=== PATIENT | female | born 1950 ===

== ENCOUNTER 2021-02-25 13:01 | Outpatient (REF) | payer MEDICARE, SELFPAY ==
--- NOTE | 2021-03-02 13:31 | MHC.AU.ANO ---
Adult Audiological Evaluation Date of Visit: 02/25/21 Reason for Appointment: Patient has begun to notice mild hearing difficulty. She finds herself asking for repetition more often. She experiences occasional tinnitus and has a recent diagonsis of BPPV. Has hearing been tested previously?: No Hearing Handicap Inventory: HHIE SCORE: 12 Based on HHIE score, patient has: Mild to moderate perceived hearing handicap Ear History: Ear Deformity: None Reported Recent Ear Drainage: None Reported Recent Ear Pain: None Reported Family History of Hearing Loss?: Yes: Grandparents, Niece Recent Ear Infections: None Reported Ear Infections in Childhood: None Reported History of Ear Wax Buildup: None Reported Previous Ear Surgery: None Reported Bothersome Tinnitus/Ringing/Noises in Ears: Occasional Ear used on the phone: Left Ear Blocked/Full Sensation in Ear(s): None Reported History of occupational noise exposure?: No History: No Medical History: Medical History: BPPV, Fibromyalgia Otoscopy: Right Ear: Unremarkable Left Ear: Unremarkable Tympanometry: Tympanometry performed due to: To assess integrity of the middle ear system Right Ear: Normal Middle Ear System (Type A) Left Ear: Normal Middle Ear System (Type A) Hearing Evaluation: Transducer(s) Used: Circumaural Headphones Method: Conventional Audiometry Stimuli Used: Pure Tones Right Ear: Description of Hearing: Normal gradually sloping to moderate sensorineural hearing loss Left Ear: Description of Hearing: Normal gradually sloping to mild sensorineural hearing loss Speech Recognition Threshold (SRT): Method Used: Recorded Lists Stimuli Used: Spondee Words Right Ear: 30 dBHL Left Ear: 25 dBHL Word Discrimination: Method: Recorded Lists Word Lists Used: NU-6 Right Ear: 96% at 60 dBHL Left Ear: 96% at 60 dBHL Most Comfortable Level (MCL): Right Ear: 60 dBHL Left Ear: 60 dBHL Recommendations: Audiological re-evaluation in one year. Amplification is not warranted at this time. To help optimize listening conditions: -Minimize background noise when possible. -Speak to the patient in a clear voice, from a close distance, and [id number]. -Gain the patient's full attention before talking. Diagnosis: Primary Diagnosis: H90.3 Bilateral Sensorineural Hearing Loss Services Performed: Comprehensive Audiological Evaluation (CPT 53715), Tympanometry (CPT 99968) Signature: Provider: Sarath Zelaya, [facility]
== END 2021-02-25 13:02 | disposition home or self-care (01) ==
LOC: HO.SH 13:01
PROVIDERS: Visit Provider Physician Assistant
DX: H90.3 Sensorineural hearing loss, bilateral (principal)
CPT/HCPCS: 92557; 92567

== ENCOUNTER → 2021-08-12 09:47 | Outpatient (BNVA) | payer MEDICARE, SELFPAY | PROVIDERS: PCP Internal Medicine Geriatric Medicine; Referring Provider Internal Medicine Geriatric Medicine; Visit Provider Surgery | DX: K43.2 Incisional hernia without obstruction or gangrene (principal) | CPT/HCPCS: 99202 ==

== ENCOUNTER 2021-09-13 09:32 | Outpatient (REF) | payer MEDICARE, SELFPAY ==
[2021-09-13 10:29] LABS: Blood Urea Nitrogen 13 mg/dL (9-16); Estimated Glomerular Filt Rate > 60
== END 2021-09-13 09:33 | disposition home or self-care (01) ==
LOC: HO.LAB 09:32
PROVIDERS: Visit Provider Surgery
DX: K43.2 Incisional hernia without obstruction or gangrene (principal)
CPT/HCPCS: 36415; 82565; 84520

== ENCOUNTER 2021-09-16 09:48 | Outpatient (REF) | payer MEDICARE, SELFPAY ==
--- NOTE | ~2021-09-16 | CT_ITS ---
EXAMINATION: CT ABDOMEN AND PELVIS WITHOUT CONTRAST CLINICAL INFORMATION: Incisional hernia without obstruction or gangrene COMPARISON: 744 TECHNIQUE: Multidetector volumetric imaging was performed from the superior aspect of the liver through the pubic symphysis. Sagittal and coronal reformatted images were obtained on the technologist's workstation. This CT examination was performed using dose optimization techniques as appropriate, variously including the following: *Automated exposure control *Adjustment of mA and/or kV according to patient size (this includes techniques or standardized protocols for targeted exams where dose is matched to indication/reason for exam; i.e. extremities or head) *Use of iterative reconstruction technique DLP: 744 mGy-cm FINDINGS: LUNG BASES: Bibasilar atelectasis. The heart is not enlarged. No pericardial effusion. No large pleural effusion. LIVER, GALLBLADDER, AND BILIARY TREE: The liver is normal in size, shape, and attenuation. No focal hepatic lesion or biliary ductal dilatation is present. The gallbladder is surgically absent. PANCREAS: Unremarkable. SPLEEN: Unremarkable. ADRENAL GLANDS: Unremarkable. KIDNEYS AND URETERS: Bilateral nonobstructive 1 mm calculi without hydronephrosis. No perinephric stranding. Calcification along the left mid ureter likely vascular in etiology. BLADDER: Inferior margin of the urinary bladder is low lying. GASTROINTESTINAL TRACT: Colonic diverticulosis without acute diverticulitis. The small and large bowel are unremarkable. The appendix is unremarkable. ABDOMINAL WALL: Tiny fat filled ventral hernia measuring approximately 3 mm at its opening. LYMPH NODES: No enlarged lymph nodes per size criteria. VASCULAR: Abdominal aorta is nonaneurysmal. Atherosclerotic calcifications of the abdominal aorta and its branches. Pelvic phleboliths PELVIC VISCERA: Atrophy versus surgically absent. Multilevel degenerative changes of the thoracolumbar and lumbosacral spine. Osteopenia. No large lytic or blastic lesions are noted. OSSEOUS STRUCTURES: Unremarkable. CT/CT abdomen pelvis wo con IMPRESSION: 1. Tiny fat filled ventral hernia measuring approximately 3 mm at its opening. 2. Status post cholecystectomy. 3. Bilateral nephrolithiasis measuring up to 1 mm without hydronephrosis. 4. Colonic diverticulosis without diverticulitis. 5. Osteopenia.
== END 2021-09-16 09:49 | disposition home or self-care (01) ==
LOC: HO.CT 09:48
PROVIDERS: Visit Provider Surgery
DX: K43.2 Incisional hernia without obstruction or gangrene (principal)
CPT/HCPCS: 74176

== ENCOUNTER → 2021-09-20 08:53 | Outpatient (BNVA) | payer MEDICARE, SELFPAY | PROVIDERS: PCP Internal Medicine Geriatric Medicine; Referring Provider Internal Medicine Geriatric Medicine; Visit Provider Surgery | DX: K43.2 Incisional hernia without obstruction or gangrene (principal) | CPT/HCPCS: 99212 ==

== ENCOUNTER 2022-06-19 07:15 | Day surgery (SDC) | payer OTHER, SELFPAY ==
[2022-06-12 15:27] VITALS: BMI 30.4
--- NOTE | 2022-06-15 13:31 | MHC.SHP ---
Pre-Procedural Eval Section A Date of Service: 06/15/22 The patient is an INPATIENT: No Changes since office visit: No Cold of Flu in the past 2 weeks, No New Medical Problems, No Changes in Medication and No Patient answered all questions The History & Physical has been completed within 30 days and I have reviewed it.: Yes Section B Chief Complaint: cataract Allergies: Allergies Allergy/AdvReac Type Severity Reaction Status Date / Time iodine Allergy Severe Anaphylaxis Verified 06/12/22 15:24 morphine [MORPHINE] Allergy Severe HALLUCINATI Verified 06/12/22 15:24 ONS oxycodone [OXYCODONE] Allergy Severe HALLUCINATI Verified 06/12/22 15:24 ONS IV dye Allergy Severe Anaphylaxis Uncoded 06/12/22 15:24 Flexeril Allergy Intermediate Gastrointestinal Uncoded 06/12/22 15:24 Upset Plan Diagnosis/Plan: Unchanged I have reviewed the history and physical and performed a pertinent physical examination on my patient. No changes have occurred unless specified.
--- NOTE | 2022-06-16 09:27 | HO.ANESPROP2 ---
Documented by User: Sivan Cloud NP 06/16/22 09:29 HPI - Anesthesia Eval Consult details Narrative: 72yo F for Left Cataract Extraction IOL Insertion PCP cleared No previous cataract on record [facility] Active Problems Active Problems: All Active Problems (Updated 06/12/22 @ 15:26 by Adriana Washington RN) Incisional hernia (Acute) Past Medical History Medical History Bilateral low back pain with bilateral sciatica Lumbar disc herniation Family History Family History Mother Cutaneous lymphoma Surgical History Surgical History History of abdominoplasty History of bilateral breast reduction surgery History of cholecystectomy Hx of colonoscopy Social History Social History Household Members Other:: 7 yr old grandson Are you a primary workforce investment act career manager to a significant other at home: Yes (grandson, patient's sister to assist post-op) Do you presently have visiting nurse or other home services: No Alcohol intake: never Patient Tobacco Use Status: Former Tobacco user Quit Date: years ago Tobacco use type: Cigarette Use of substances other than those prescribed or required for medical reasons: No Have you been hit, kicked, punched, or otherwise hurt by someone within the past year? If so, by whom?: No Are you DNR?: No Advance Directives: No Advance Directives Information Provided: Yes Advance Directives on File: No Recently lost weight without trying: No Nutrition Risks: No Nutritional Risk Meds Allergies Allergy/AdvReac Type Severity Reaction Status Date / Time iodine Allergy Severe Anaphylaxis Verified 06/12/22 15:24 morphine [MORPHINE] Allergy Severe HALLUCINATI Verified 06/12/22 15:24 ONS oxycodone [OXYCODONE] Allergy Severe HALLUCINATI Verified 06/12/22 15:24 ONS IV dye Allergy Severe Anaphylaxis Uncoded 06/12/22 15:24 Flexeril Allergy Intermediate Gastrointestinal Uncoded 06/12/22 15:24 Upset Home Medications Medication Instructions Recorded Confirmed Last Taken Type fluticasone propionate 50 1 - 2 spray intranasal DAILY 09/20/21 09/20/21 Unknown History mcg/actuation nasal spray,suspension meclizine 25 mg tablet 25 mg PO TID PRN 09/20/21 09/20/21 Unknown History Exam Exam Date and Time: June 16, [id number] Height,Weight and Vital Signs: Height 5 ft 3 in Weight 78.018 kg Assessment and Plan Assessment Anesthesia Assessment: Chart Reviewed Documented by User: Roberto Christine MD 06/19/22 08:20 PMF Past Medical History Medical History Bilateral low back pain with bilateral sciatica Lumbar disc herniation Family History Family History Mother Cutaneous lymphoma Family history of problems with anesthesia: No Surgical History Surgical History History of abdominoplasty History of bilateral breast reduction surgery History of cholecystectomy Hx of colonoscopy History of Problems with Anesthesia: No Social History Social History Household Members Other:: 7 yr old grandson Are you a primary workforce investment act career manager to a significant other at home: Yes (grandson, patient's sister to assist post-op) Do you presently have visiting nurse or other home services: No Alcohol intake: never Patient Tobacco Use Status: Former Tobacco user Quit Date: years ago Tobacco use type: Cigarette Use of substances other than those prescribed or required for medical reasons: No Have you been hit, kicked, punched, or otherwise hurt by someone within the past year? If so, by whom?: No Are you DNR?: No Advance Directives: No Advance Directives Information Provided: Yes Advance Directives on File: No Recently lost weight without trying: No Nutrition Risks: No Nutritional Risk Meds Allergies Allergy/AdvReac Type Severity Reaction Status Date / Time iodine Allergy Severe Anaphylaxis Verified 06/12/22 15:24 morphine [MORPHINE] Allergy Severe HALLUCINATI Verified 06/12/22 15:24 ONS oxycodone [OXYCODONE] Allergy Severe HALLUCINATI Verified 06/12/22 15:24 ONS IV dye Allergy Severe Anaphylaxis Uncoded 06/12/22 15:24 Flexeril Allergy Intermediate Gastrointestinal Uncoded 06/12/22 15:24 Upset Home Medications Medication Instructions Recorded Confirmed Last Taken Type fluticasone propionate 50 1 - 2 spray intranasal DAILY 09/20/21 09/20/21 Unknown History mcg/actuation nasal spray,suspension meclizine 25 mg tablet 25 mg PO TID PRN 09/20/21 09/20/21 Unknown History Exam Airway Mallampati Class: II TM Dist: >3cm Neck ROM: Full Loose/Missing/Broken Teeth: Yes (many crowns globally) Heart: [id number] Lungs: cta b/l Assessment and Plan Assessment Anesthesia Assessment: Anesthesia Plan Discussed Final Anesthetic Review Family History of Problems with Anesthesia: No History of Problems with Anesthesia: No NPO: Yes ASA Class: II Final Preanesthetic Review: No Changes in Pt Med Stat, Meds/Allgs Chart Reviewed, Consent Obtained/Reviewed and Anes Risks/Benef Reviewed Patient Risk: Low Procedure Risk: Low Assessment/Block/Sedation in SS: Assess/Block/Sedation-SS Anesthetic Plan Anesthetic Plan: MAC: and Agree w/ Assess. and Plan Disposition: Standard PACU
[2022-06-19 08:09] VITALS: BP 179/79; PULSE 80; RESP 16; TEMP 36.7; O2SAT 96
[2022-06-19] MEDS: Tetracaine HCl/PF 0.5% Oph Sol 4 ML DROPS 1 DROP EYE-LEFT (08:16)
[2022-06-19] MEDS: Cyclopentolate 1 % Ophth Sol 2 ML DRPBTL 1 DROP EYE-LEFT ×3 (08:17→08:28)
[2022-06-19] MEDS: Tropicamide 1 % Ophth Sol 3 ML BTL 1 DROP EYE-LEFT ×3 (08:19→08:29)
[2022-06-19] MEDS: Lactated Ringers 500 ML 50 ML IV (08:20)
[2022-06-19] MEDS: Phenylephrine HCL 2.5% Oph SoL 2 ML BOTTLE 1 DROP EYE-LEFT ×3 (08:21→08:31)
--- NOTE | 2022-06-19 09:21 | HO.PNOPHT ---
Ophthalmology Procedure Procedure Date of Service: 06/19/22 Ophthalmology Viscoelastic: Healavelino Duet Dual Pack Pro Ophthalmology Lenses: TECIGNACIA [id number] (23) Procedure Notes: PREOPERATIVE DIAGNOSIS: Decreased visual acuity left eye secondary to cataract POSTOPERATIVE DIAGNOSIS: Same PROCEDURE: Left cataract extraction with intraocular lens insertion SURGEON: Felton Cano M.D. ANESTHESIA: Topical/MAC ESTIMATED BLOOD LOSS: None COMPLICATIONS: None After obtaining informed consent, the patient was brought to the operation room suite and placed in the supine position. After adequate sedation per anesthesia, topical drops of Tetracaine were given to the left eye. The eye was then prepped and draped in the usual sterile fashion. The operating room microscope was then positioned over the operative eye and a lid speculum placed. A paracentesis was created. Viscoelastic was then instilled into the anterior chamber. A three plane incision was then created temporally, utilizing a 2.85 mm keratome. Capsulotomy forceps were then utilized to create a circular tear capsulotomy. Hydrodissection and hydrodelineation were carried out until adequate mobilization of the nucleus occurred. Phacoemulsification was then utilized to remove the dense central nucleus followed by removal of the cortical material utilizing the automated aspiration irrigation unit. Viscoat elastic was instilled into the posterior capsular bag followed by placement of a posterior chamber intraocular lens without difficulty. The residual Viscoat elastic was then removed utilizing the automated IA machine. The wound was check and found to be watertight. The patient tolerated the procedure well and the lid speculum was removed. Intracameral injection of Vigamox 0.1 mL followed by a subtenon injection of Kenalog-40 0.2 mL were administered. The patient will be seen in the a.m.
[2022-06-19 09:45] VITALS: BP 137/93; PULSE 77; RESP 16; TEMP 36.4; O2SAT 94
== END 2022-06-19 09:55 | disposition home or self-care (01) ==
PROVIDERS: PCP Internal Medicine Geriatric Medicine; Visit Provider Ophthalmology
PROC: (CPT 66985; principal; 2022-06-19 09:10)
DX: H25.12 Age-related nuclear cataract, left eye (principal); H04.123 Dry eye syndrome of bilateral lacrimal glands; H52.4 Presbyopia; Z96.1 Presence of intraocular lens; Z79.899 Other long term (current) drug therapy; Z88.8 Allergy status to other drugs, medicaments and biological substances; Z91.041 Radiographic dye allergy status; Z87.891 Personal history of nicotine dependence
CPT/HCPCS: 66984; J2250; J3010; J3300; V2632

== ENCOUNTER 2022-10-24 08:40 | Outpatient (REF) | payer OTHER, SELFPAY ==
--- NOTE | ~2022-10-24 | US_ITS ---
EXAMINATION: US ABDOMEN COMPLETE CLINICAL INFORMATION: Epigastric and right upper quadrant pain, status post cholecystectomy. COMPARISON: CT abdomen and pelvis without contrast 09/16/2021. TECHNIQUE: Real-time imaging of the abdominal viscera. Technically limited study secondary to bowel gas. FINDINGS: PANCREAS: Normal. ABDOMINAL AORTA: Atherosclerotic disease. Normal diameter. INFERIOR VENA CAVA: Visualized portions are normal. LIVER: The liver is normal in size. The liver contour is normal. Increased parenchymal echogenicity. No focal hepatic lesion. There is no intrahepatic biliary duct dilatation seen. GALLBLADDER: Surgically absent. COMMON BILE DUCT: Normal in caliber measuring 0.2 cm in diameter. RIGHT KIDNEY: There is a 0.3 x 0.1 x 0.2 cm hyperechoic focus in the lateral mid pole. No hydronephrosis or renal calculi. The kidney measures 10.7 cm in maximum dimension. LEFT KIDNEY: Normal. No hydronephrosis. No renal calculi or focal parenchymal lesions. The kidney measures 9.8 cm in maximum dimension. SPLEEN: Normal. The spleen measures 8.3 cm in maximum dimension. FREE FLUID: None. US/US abdomen complete IMPRESSION: 1. Nonspecific 0.3 cm hyperechoic focus in the lateral mid pole of the right kidney without could represent a small angiomyolipoma. Given very small size this is of uncertain significance and it is likely too small to characterize by CT or MR. This could be safely followed with a renal ultrasound in 6-12 months to reassess. 2. Increased hepatic parenchymal echogenicity is nonspecific but most commonly on the basis of diffuse hepatocellular disease such as hepatic steatosis. 3. Status post cholecystectomy.
[2022-10-24 09:20] LABS: MANUAL DIFF FLAG NO
[2022-10-24 10:38] LABS: Basophils Absolute Auto 0.1 X10*3/uL (0.0-0.2); Basophils Percent Auto 0.7 % (0-2); Eosinophils Absolute Auto 0.2 X10*3/uL (0.0-0.4); Eosinophils Percent Auto 2.4 % (0-4); Hematocrit 39.4 % (37.0-47.0); Hemoglobin 12.8 g/dl (12.0-16.0); Imm Gran Abs Auto 0.07 X10*3/uL (0.00-0.03); Imm Gran Pct Auto 0.9 % (0.0-0.4); Lymphocytes Absolute Auto 2.6 X10*3/uL (1.2-4.9); Lymphocytes Percent Auto 33.5 % (20-40); Mean Corpuscular HGB Conc 32.5 g/dl (31.0-35.0); Mean Corpuscular Hemoglobin 31.2 pg (27.0-33.0); Mean Corpuscular Volume 96.1 fL (80.0-98.0); Mean Platelet Volume 10.4 fL (9.4-12.3); Monocytes Absolute Auto 0.6 X10*3/uL (0.1-1.2); Monocytes Percent Auto 7.3 % (2-11); Neutrophils Absolute Auto 4.2 x10*3/uL (2.0-8.3); Neutrophils Percent Auto 55.2 % (45-73); Platelet Count 307 X10*3/uL (160-400); Red Cell Distribution Width 13.3 % (11.0-16.0); White Blood Count 7.7 X10*3/uL (4.8-10.8)
[2022-10-24 11:23] LABS: Alanine Aminotransferase 13 U/L (0-31); Albumin Level 3.9 g/dL (3.5-5.0); Alkaline Phosphatase 91 U/L (39-117); Anion Gap 13 (12-20); Aspartate Amino Transferase 14 U/L (5-31); Bilirubin Total 0.4 mg/dL (0.0-1.0); Blood Urea Nitrogen 18 mg/dL (9-16); Calcium 9.2 mg/dL (8.4-10.2); Carbon Dioxide 27 mmol/L (22-29); Chloride 106 mmol/L (96-108); Estimated Glomerular Filt Rate > 60; Glucose Random 98 mg/dL (60-115); Lipase 14 U/L (8-78); Potassium 4.7 mmol/L (3.3-5.1); Sodium 141 mmol/L (135-145); Total Protein 6.9 g/dL (6.5-8.0)
== END 2022-10-24 08:41 | disposition home or self-care (01) ==
LOC: HO.US 08:40
PROVIDERS: PCP Internal Medicine Geriatric Medicine; Visit Provider Internal Medicine Geriatric Medicine
DX: R10.11 Right upper quadrant pain (principal); Z87.19 Personal history of other diseases of the digestive system
CPT/HCPCS: 36415; 76700; 80053; 83690; 85025

== ENCOUNTER 2024-01-30 12:57 | Outpatient (AMB) | payer OTHER, SELFPAY ==
--- NOTE | 2024-01-30 13:05 | A.SPINEOV_ITS ---
Intake Visit Reasons: low back pain Intake Note: Ms. Mcmahon is here today c/o low back pain that radiates to both legs. Mergers And Acquisitions Associate Required: No Allergies iodine Allergy (Severe, Verified 01/30/24 13:07) Anaphylaxis morphine [MORPHINE] Allergy (Severe, Verified 01/30/24 13:07) HALLUCINATIONS oxycodone [OXYCODONE] Allergy (Severe, Verified 01/30/24 13:07) Headache IV dye Allergy (Severe, Uncoded 06/12/22 15:24) Anaphylaxis Flexeril Allergy (Intermediate, Uncoded 06/12/22 15:24) Gastrointestinal Upset Assessment & Plan Assessment & Plan (1) Degenerative lumbar spinal stenosis: Code(s): M48.061 - Spinal stenosis, lumbar region without neurogenic claudication Category: Medical Plan: Dear colleague Thank you for referring Felipa Mcmahon to the office today with a chief complaint of back pain and bilateral leg pain. HPI: This 73-year-old female is having an 3-5 year history of back pain and radiating pain down both legs with the left side is more affected than the right side. The back pain is more constant and increases with changing of positions. The bilateral leg pain comes with walking and standing and improves when she sits down or leans forward. She can not paper machine backtender the indication for prolonged period of times. The pain radiates to the outside of her legs, thighs and outside of her ankles. She lives with her grandson of 9 years old. The following conservative treatment options were tried in the past without success antiinflammatories, tylenol, acupuncture and cortisone shots PMH: None Medications: None Allergies: Oxycodone contrast and morphine Social history: Nonsmoker. Physical Exam: Pleasant female. Changing for positions from sitting to standing is painful. Straight leg raise is negative bilaterally. No deficits for motor sensation or reflexes Radiological Studies: MRI of the lumbar spine done at [facility] on 12/14/2023 was compared to an MRI of 09 10 2020 and shows progression of L4-5 central stenosis and bilateral foraminal stenosis to moderate and mild L3-4 and L5-S1 central spinal stenosis. Impression/Plan: This patient is suffering from neurogenic claudication due to lumbar spinal stenosis. I would like to obtain flexion-extension x-rays to exclude instability due to the amount of back pain she is complaining. She will get those it [facility] and will return to my clinic to discuss further plan. I did mention a L4-5 laminotomy as a treatment for her bilateral leg dudley n. Thank you for allowing me to participate in your patients care. total time spent was 50 minutes in counseling ,coordination of plan, personal review of imaging, surgical decision making and subsequent plan Vinay Serrano MD, PhD Spine Fellowship Trained Neurosurgeon Director, [facility] [place] [facility] Orders: Orders XR lumbar spine 4V min Today M48.061 - Spinal stenosis, lumbar region without neurogenic claudication Coding Level of Care Code New Pt Level 4 (70339) Diagnoses Degenerative lumbar spinal stenosis M48.061
== END 2024-01-30 13:40 | disposition home or self-care (01) ==
PROVIDERS: PCP Internal Medicine Geriatric Medicine; Visit Provider Neurological Surgery
DX: M48.061 Spinal stenosis, lumbar region without neurogenic claudication (principal)
CPT/HCPCS: 99204

== ENCOUNTER → 2024-01-30 12:57 | Outpatient (BNVA) | payer OTHER, SELFPAY | PROVIDERS: PCP Internal Medicine Geriatric Medicine; Visit Provider Neurological Surgery | DX: M48.061 Spinal stenosis, lumbar region without neurogenic claudication (principal) | CPT/HCPCS: 99202 ==

== ENCOUNTER 2024-02-13 14:59 | Outpatient (AMB) | payer OTHER, SELFPAY ==
--- NOTE | 2024-02-13 15:03 | A.SPINEOV_ITS ---
Intake Visit Reasons: F/up xrays Intake Note: Ms. Mcmahon is here to f/u on x-rays done at [facility]. Training Intern Required: No Allergies iodine Allergy (Severe, Verified 02/13/24 15:09) Anaphylaxis morphine [MORPHINE] Allergy (Severe, Verified 02/13/24 15:09) HALLUCINATIONS oxycodone [OXYCODONE] Allergy (Severe, Verified 02/13/24 15:09) Headache IV dye Allergy (Severe, Uncoded 06/12/22 15:24) Anaphylaxis Flexeril Allergy (Intermediate, Uncoded 06/12/22 15:24) Gastrointestinal Upset Assessment & Plan Assessment & Plan (1) Degenerative lumbar spinal stenosis: Code(s): M48.061 - Spinal stenosis, lumbar region without neurogenic claudication Category: Medical Plan Dear colleague, on 02/13/2024 I saw for follow-up Felipa Mcmahon to discuss options for her neurogenic claudication due to L4-5 stenosis. She brings in our x-rays of the lumbar spine that showed no signs of instability. I recommended an L4-5 laminotomy with the understanding that this is to treat her radiating pain and numbness down her legs and not her axial back pain. She is tentatively scheduled for 05/08/2024. She will get preoperative clearance from the primary care physician. Thank you for letting me take care of your patient. Do not hesitate to call me with any questions or concerns. Vinay Serrano MD, PhD Spine Fellowship Trained Neurosurgeon Director, [facility] [place] [facility] Coding Level of Care Code Est Pt Level 2 (91750) Diagnoses Degenerative lumbar spinal stenosis M48.061
== END 2024-02-13 15:55 | disposition home or self-care (01) ==
PROVIDERS: PCP Internal Medicine Geriatric Medicine; Visit Provider Neurological Surgery
DX: M48.061 Spinal stenosis, lumbar region without neurogenic claudication (principal)
CPT/HCPCS: 99212

== ENCOUNTER → 2024-02-13 14:59 | Outpatient (BNVA) | payer OTHER, SELFPAY | PROVIDERS: PCP Internal Medicine Geriatric Medicine; Visit Provider Neurological Surgery | DX: M48.061 Spinal stenosis, lumbar region without neurogenic claudication (principal) | CPT/HCPCS: 99212 ==

== ENCOUNTER 2024-03-07 11:23 | Outpatient (AMB) | payer OTHER, SELFPAY ==
--- NOTE | 2024-03-07 11:37 | HO.SPINEOV ---
Intake Visit Reasons: discuss surgery/questions Intake Note: Ms. Mcmahon is here to Discuss Surgery. Soap Tender Required: No Allergies iodine Allergy (Severe, Verified 02/13/24 15:09) Anaphylaxis morphine [MORPHINE] Allergy (Severe, Verified 02/13/24 15:09) HALLUCINATIONS oxycodone [OXYCODONE] Allergy (Severe, Verified 02/13/24 15:09) Headache IV dye Allergy (Severe, Uncoded 06/12/22 15:24) Anaphylaxis Flexeril Allergy (Intermediate, Uncoded 06/12/22 15:24) Gastrointestinal Upset Assessment & Plan Assessment & Plan (1) Degenerative lumbar spinal stenosis: Code(s): M48.061 - Spinal stenosis, lumbar region without neurogenic claudication Category: Medical Plan On 03/07/2024, I saw Felipa Mcmahon to discuss and answer questions regarding her upcoming lumbar laminotomy L4-5 in May. All questions were answered satisfactorily. She requested to be moved up on the surgical schedule. We will put her on a waiting list. Vinay Serrano MD, PhD Spine Fellowship Trained Neurosurgeon Director, [facility] [place] [facility] Coding Level of Care Code Est Pt Level 2 (18607) Diagnoses Degenerative lumbar spinal stenosis M48.061
== END 2024-03-07 12:00 | disposition home or self-care (01) ==
PROVIDERS: PCP Internal Medicine Geriatric Medicine; Visit Provider Neurological Surgery
DX: M48.061 Spinal stenosis, lumbar region without neurogenic claudication (principal)
CPT/HCPCS: 99212

== ENCOUNTER → 2024-03-07 11:23 | Outpatient (BNVA) | payer OTHER, SELFPAY | PROVIDERS: PCP Internal Medicine Geriatric Medicine; Visit Provider Neurological Surgery | DX: M48.061 Spinal stenosis, lumbar region without neurogenic claudication (principal) | CPT/HCPCS: 99212 ==

== ENCOUNTER 2024-05-08 07:52 | Day surgery (SDC) | payer OTHER, SELFPAY ==
[2024-04-24 13:20] VITALS: BP 116/56; PULSE 72; RESP 16; O2SAT 97; BMI 28.4
--- NOTE | 2024-04-24 13:31 | P.CONAN_ITS ---
Documented by User: Sivan Cloud NP 05/06/24 14:49 HPI - Anesthesia Eval Consult details Narrative: 74yo F for L4-5 Lumbar Decompression, 05/08/24 No blood/blood products d/t latter day No recent illness No CP/SOB with activity limited by pain Medically optimized per PCP [facility] Active Problems Active Problems: All Active Problems Degenerative lumbar spinal stenosis (Acute) Incisional hernia (Acute) Past Medical History Medical History Fibromyalgia Varicose vein of leg Pre-diabetes GERD (gastroesophageal reflux disease) Steatosis of liver IBS (irritable bowel syndrome) Vertigo Renal cyst Anxiety Depression Bilateral low back pain with bilateral sciatica Lumbar disc herniation Family History Family History Mother Cutaneous lymphoma Family history of problems with anesthesia: No Surgical History Surgical History Hx of foot surgery History of esophagogastroduodenoscopy (EGD) Hx of cataract extraction Hx of colonoscopy History of abdominoplasty History of bilateral breast reduction surgery History of cholecystectomy History of Problems with Anesthesia: No Social History Social History Household Members Other:: grandson-minor Are you a primary medicare insurance specialist to a significant other at home: Yes (grandson- minor) Do you presently have visiting nurse or other home services: No Alcohol intake: never Patient Tobacco Use Status: Former Tobacco user Tobacco use type: Cigarette Use of substances other than those prescribed or required for medical reasons: No Have you been hit, kicked, punched, or otherwise hurt by someone within the past year? If so, by whom?: No Are you DNR?: No Advance Directives: Yes (son is HCP/blood refusal form on chart) Advance Directives Information Provided: Yes Advance Directives on File: Yes Advance Directives Date on File: 04/24/24 Recently lost weight without trying: No Eating poorly because of decreased appetite: No Nutrition Risks: Surgical patient >75years Poor oral hygiene: No (one missing tooth upper right molar) Meds Allergies Allergy/AdvReac Type Severity Reaction Status Date / Time Iodinated Contrast Media Allergy Severe Anaphylaxis Verified 05/08/24 08:02 [IV Contrast Dye] iodine Allergy Severe Anaphylaxis Verified 05/08/24 08:02 morphine [MORPHINE] Allergy Severe HALLUCINATI Verified 05/08/24 08:02 ONS cyclobenzaprine Allergy Intermediate Gastrointestinal Verified 05/08/24 08:02 [From Flexeril] Upset oxycodone [OXYCODONE] AdvReac Intermediate causes Verified 05/08/24 08:02 confusion but no real allergy Home Medications ?Medication ?Instructions ?Recorded ?Confirmed ?Last Taken ?Type meclizine 25 mg tablet 25 mg PO TID PRN Dizziness 09/20/21 05/08/24 Unknown History cyclosporine 0.05 % eye drops in a 1 drp ophthalmic (eye) BID 04/24/24 05/08/24 Unknown History dropperette Exam Height,Weight and Vital Signs: Height 5 ft 2.5 in Weight 71.668 kg Last Vital Signs Pulse 72 04/24/24 13:20 Resp 16 04/24/24 13:20 BP 116/56 L 04/24/24 13:20 Pulse Ox 97 04/24/24 13:20 O2 Del Method Room Air 04/24/24 13:20 Pertinent Lab Results Pertinent Lab Results: CBC and BMP from outside facility 03/2024 WNL Narrative Narrative: EKG 03/2024 NSR Airway Mallampati Class: I TM Dist: >3cm Neck ROM: Limited Loose/Missing/Broken Teeth: No (Permanent bridge upper front, lower left) Heart: RRR Lungs: CTAB Assessment and Plan Assessment Anesthesia Assessment: Anesthesia Plan Discussed and PAT Visit Final Anesthetic Review Family History of Problems with Anesthesia: No History of Problems with Anesthesia: No Documented by User: Dahiana Milian MD 05/08/24 08:26 [facility] Past Medical History Medical History Fibromyalgia Varicose vein of leg Pre-diabetes GERD (gastroesophageal reflux disease) Steatosis of liver IBS (irritable bowel syndrome) Vertigo Renal cyst Anxiety Depression Bilateral low back pain with bilateral sciatica Lumbar disc herniation Family History Family History Mother Cutaneous lymphoma Surgical History Surgical History Hx of foot surgery History of esophagogastroduodenoscopy (EGD) Hx of cataract extraction Hx of colonoscopy History of abdominoplasty History of bilateral breast reduction surgery History of cholecystectomy Social History Social History Household Members Other:: grandson-minor Are you a primary medicare insurance specialist to a significant other at home: Yes (grandson- minor) Do you presently have visiting nurse or other home services: No Alcohol intake: never Patient Tobacco Use Status: Former Tobacco user Tobacco use type: Cigarette Use of substances other than those prescribed or required for medical reasons: No Have you been hit, kicked, punched, or otherwise hurt by someone within the past year? If so, by whom?: No Are you DNR?: No Advance Directives: Yes (son is HCP/blood refusal form on chart) Advance Directives Information Provided: Yes Advance Directives on File: Yes Advance Directives Date on File: 04/24/24 Recently lost weight without trying: No Eating poorly because of decreased appetite: No Nutrition Risks: Surgical patient >75years Poor oral hygiene: No (one missing tooth upper right molar) Meds Allergies Allergy/AdvReac Type Severity Reaction Status Date / Time Iodinated Contrast Media Allergy Severe Anaphylaxis Verified 05/08/24 08:02 [IV Contrast Dye] iodine Allergy Severe Anaphylaxis Verified 05/08/24 08:02 morphine [MORPHINE] Allergy Severe HALLUCINATI Verified 05/08/24 08:02 ONS cyclobenzaprine Allergy Intermediate Gastrointestinal Verified 05/08/24 08:02 [From Flexeril] Upset oxycodone [OXYCODONE] AdvReac Intermediate causes Verified 05/08/24 08:02 confusion but no real allergy Home Medications ?Medication ?Instructions ?Recorded ?Confirmed ?Last Taken ?Type meclizine 25 mg tablet 25 mg PO TID PRN Dizziness 09/20/21 05/08/24 Unknown History cyclosporine 0.05 % eye drops in a 1 drp ophthalmic (eye) BID 04/24/24 05/08/24 Unknown History dropperette Exam Airway Mallampati Class: II Assessment and Plan Assessment Anesthesia Assessment: Chart Reviewed Final Anesthetic Review NPO: Yes ASA Class: II Final Preanesthetic Review: Meds/Allgs Chart Reviewed, Consent Obtained/Reviewed and Anes Risks/Benef Reviewed Patient Risk: Low Procedure Risk: Intermediate Anesthetic Plan Anesthetic Plan: GA Disposition: Standard PACU
[2024-05-08] VITALS (11 sets, daily range): BP systolic 142–156; BP diastolic 60–78; PULSE 72–90; RESP 14–18; TEMP 36.3–37; O2SAT 95–100; BMI 27.9
--- NOTE | ~2024-05-08 | FL_ITS ---
EXAMINATION: XR FLUOROSCOPY WITH IMAGES CLINICAL INFORMATION: L4-5 posterior decompression intraoperative fluoroscopic guidance. COMPARISON: None available. TECHNIQUE: Fluoroscopy provided to: Dr. Serrano Fluoroscopy time: 0.0 minutes DAP: 0.517 Gycm2 Images: 1 FINDINGS: Solitary coned-down lateral image lumbar spine showing retractors is in place and dorsal probe in place at the L4-5 superior articular facet level. FL/FL guidance in OR IMPRESSION: Fluoroscopic guidance. Please refer to the full operative report for details. Electronically signed by: Victor Hugo Mcadams MD 07/04/2024 03:25 PM EDT
--- OUTSIDE RECORDS SUMMARY | 2024-05-08 07:54 | XMS_ITS | Continuity of Care Document ---
Author Organization [facility] Address [address] [address]- Care Team Providers Care Pigment Grinder Name Role Phone Kanika Sánchez MD Primary Care Physician [phone] Encounter [facility] Date(s): 06/22/23 - 06/29/23 [facility] [address] [address] Encounter Diagnosis Symptomatic varicose veins of both lower extremities(Discharge Diagnosis) - 06/22/23 Attending Physician: Martha Zamora MD Admitting Physician: Martha Zamora MD Referring Physician: Amaury Mosley MD Allergies, Adverse Reactions, Alerts Substance Reaction Severity Status morphine hallucinations Active iodinated radiocontrast dyes fevers flu Active Lactose diarrhea Active oxyCODONE Rash Active Medications clonazePAM 1 mg oral tablet 1 tablet = 1 mg, By Mouth, 2 times a day, PRN Other, 0 Refills, Maintenance, 03/07/16 13:42:16 Start Date: 03/07/16 Status: Ordered Compression- Lower Extremity (Knee High) See Instructions, # 2 each, Refills 2, Tot. Refills 2, Maintenance, 20-30 mmHg graduated compression stockings Dx: venous insufficiency, 06/22/23 11:27:00 EDT, Supply Start Date: 06/22/23 Status: Ordered Cymbalta 20 mg oral enteric coated capsule 2 capsule = 40 mg, By Mouth, Daily, # 180 capsule, 0 Refills, Maintenance, 02/07/16 10:25:11, EC Capsule Start Date: 02/07/16 Status: Ordered ibuprofen 600 mg oral tablet 600 mg, 1, tablet, By Mouth, Every 6 hours, # 56 tablet, Refills 0, Tot. Refills 0, Maintenance, 05/22/16 15:15:29, Route to Pharmacy Electronically, [id number], [id number] Start Date: 05/22/16 Stop Date: 06/05/16 Status: Ordered Voltaren 1% topical gel 1 application, Topically, 4 times a day, PRN for pain, # 100 Gm, 0 Refills, Maintenance, 05/17/22 14:50:00 EDT, Gel, [id number], Partial fill upon patient request if the prescription is for a schedule II opioid drug., 1 application Topi... Start Date: 05/17/22 Status: Ordered Problem List Condition Confirmation Course Effective Dates Status Health St atus Informant Rectocele Confirmed Active Varicose vein Confirmed Active Diagnosis Diagnosis Type Effective Dates Health Status Clinical Service Informant Symptomatic varicose veins of both lower extremities Discharge Diagnosis 06/22/23 Vital Signs Most recent to oldest [Reference Range]: 1 Height 162 cm (06/22/23 11:12 AM) Weight 76.1 kg (06/22/23 11:12 AM) Oxygen Saturation [94-100 %] 100 % (06/22/23 11:12 AM) Pulse Rate [55-90 bpm] 63 bpm (06/22/23 11:12 AM) Body Mass Index [18.5-24.99 kg/m2] 29 kg /m2 *H* (06/22/23 11:12 AM) Blood Pressure [90-138/55-84 mm Hg] 133/ 74mm Hg (06/22/23 11:12 AM) Mode of Delivery (Oxygen) Room air (06/22/23 11:12 AM) Blood pressure sites Arm, left (06/22/23 11:12 AM) Weight Obtained Via Standing scale (06/22/23 11:12 AM) Social History Social History Type Response Smoking Status Never smoker entered on: 02/05/15 Sex Note * Nae Hunter: PERFORM, SIGN, VERIFY Event Display: Patient Education/Instruction Authored Date: [id number] [facility] *[facility] Clinical Summary Name ROVERTO MORA Age 73 Years 1950 PCP Princess DEVINE, Kanika Ruiz PCP Visit Date 06/22/2023 10:49:00 Additional Instructions: Scheduled Appointments?? Future Appointments ?[facility]rt[facility]Vas??Diag ?Phone:??--?Fax:??-- ?Appt. Date:??08/17/2023?10:00 AM ?[facility]Off ?[address]??[place],??[place],??[address] ?Phone:??--?Fax:??-- ?Appt. Date:??08/17/2023?11:20 AM ?Scheduled Provider:??Martha Zamora MD Follow-Up Instructions ?? With: Address: When: Martha Zamora MD [address] [facility] [place] [address] Within 2 months Comments: with VIB Diagnosis Symptomatic varicose veins of both lower extremities Medications: Please continue your medications until treatment is completed or stopped by your provider. Discuss any questions related to medications with your provider. New Medications - Durable Medical Equipment (Compression- Lower Extremity (Knee High)) 20-30 mmHg graduated compression stockings Dx: venous insufficiency. Refills: 2. Next Dose: Medications to Continue with No Changes These medications were not printed or sent to your pharmacy Clonazepam (clonazePAM 1 mg oral tablet) 1 tab(s) Oral twice a day as needed Other. Next Dose: Diclofenac Topical (Voltaren 1% topical gel) 1 amita Topically 4 times a day as needed for pain. Refills: 0. Next Dose: Duloxetine (Cymbalta 20 mg oral enteric coated capsule) 2 capsule Oral Daily. Next Dose: Ibuprofen (ibuprofen 600 mg oral tablet) 1 tab(s) Oral every 6 hours for 14 Days. Refills: 0. Next Dose: Allergy Info:?? oxyCODONE; Lactose; iodinated radiocontrast dyes; morphine Medications Given This Visit Future Orders ?VL Venous Dup Scan Venous Insuf LE Bilat? Order Date:06/22/23?- Complete within?2 months Vital Signs Height 162 cm Weight 76.1 kg BMI 29 kg/m2 Blood Pressure 133 mm Hg/74 mm Hg Temperature Pulse Rate 63 bpm Respiratory Rate 02 Sat Mode of Delivery 100 %/Room air You can now view a summary of your hospital visit from the comfort of your home through a free online portal called [employer]. [employer] is a website that allows you to securely view your medical information including discharge summary, medications and follow-up visits. ??You can alsosend a secure electronic message to your doctor???s office to request appointments, renew medications or just ask a question. You can enroll at [email or web address] or register during your next office visit. Disclaimer:?? The information provided is of a general nature and is intended to be used in conjunction with the recommendations and advice of your health care practitioner. ??Every effort has been made to ensure that the information provided is accurate and complete at the time it is provided to you however, as your needs change, or, as new ??information becomes available, different or additional instructions may be required. If you have questions, please consult with your primary care provider or pharmacist, as appropriate. ??This information is not intended to serve as substitution for assessment and evaluation by a qualified health care provider. If you do not have a primary care provider, you may find a [facility] provider by calling [facility] [employer] Link at [phone]. [facility], in keeping with [facility] guidance, no longer requires face masks for staff, patientsor visitors in most situations. Similar to time spent indoors at other locations, there is the chance that you were exposed to respiratory viruses during your time with us (such as flu or COVID-19).? If you develop symptoms concerning for a viral respiratory infection, please seek testing (and treatment if indicated) from your medical provider or home test kit. For information about the plan of care including goals and instructions for your diagnosis, please see the patient education orders section of this document. Patient Education Materials?? The content of this educational material or handout may have been modified, supplemented, or adapted from its original content and format to support your individualized medical care. Patient Care team information Care Team Personnel Name: Kanika Sánchez MD Position: Reference Physician Member Role: PCP Address: Address: [address] [place] [id number]- Name: Rosario Nathan RN Position: KWABENA HATCH RN W/OE and Tasks Member Role: Primary Care Nurse Care Team Related Persons Name: ADI MEDELLIN Address: [place] [address] Name: COLE MORA Address: [place] [address]
--- OUTSIDE RECORDS SUMMARY | 2024-05-08 07:54 | XMS_ITS | Continuity of Care Document ---
Author Organization [facility] Address [address] [address]- Care Team Providers Care Measuring Clerk Name Role Phone Kanika Sánchez MD Primary Care Physician Encounter [facility] R [id number] Date(s): 08/17/23 - 09/16/23 [facility] [address] [address]- Attending Physician: Jet Loco Admitting Physician: Admtr, Jet Referring Physician: Admtr, Ar8 Allergies, Adverse Reactions, Alerts Substance Reaction Severity Status morphine hallucinations Active iodinated radiocontrast dyes fevers flu Active Lactose diarrhea Active oxyCODONE Rash Active Medications clonazePAM 1 mg oral tablet 1 tablet = 1 mg, By Mouth, 2 times a day, PRN Other, 0 Refills, Maintenance, 03/07/16 13:42:16 Start Date: 03/07/16 Status: Ordered Collagen Daily, 0 Refills, Maintenance, 08/17/23 10:59:00 EST, Partial fill upon patient request if the prescription is for a schedule II opioid drug. Start Date: 08/17/23 Status: Ordered Compression- Lower Extremity (Knee High) [...] Maintenance, 05/22/16 15:15:29, Route to Pharmacy Electronically, [id number], [id number] Start Date: 05/22/16 Stop Date: 06/05/16 Status: Ordered Magnesium Carbonate = 54 mg, By Mouth, Daily, 0 Refills, Maintenance, 08/17/23 10:58:00 EST, Partial fill upon patient request if the prescription is for a schedule II opioid drug. Start Date: 08/17/23 Status: Ordered Multivitamin Daily, 0 Refills, Maintenance, 08/17/23 11:02:00 EST, Partial fill upon patient request if the prescription is for a schedule II opioid drug. Start Date: 08/17/23 Status: Ordered turmeric By Mouth, Daily, 0 Refills, Maintenance, 08/17/23 10:58:00 EST, Partial fill upon patient request if the prescription is for a schedule II opioid drug. Start Date: 08/17/23 Status: Ordered Vitamin B12 Daily, 0 Refills, Maintenance, 08/17/23 10:57:00 EST, Partial fill upon patient request if the prescription is for a schedule II opioid drug. Start Date: 08/17/23 Status: Ordered Vitamin C By Mouth, Daily, 0 Refills, Maintenance, 08/17/23 10:58:00 EST, Partial fill upon patient request if the prescription is for a schedule II opioid drug. Start Date: 08/17/23 Status: Ordered Vitamin D3 oral tablet 1 tablet = 10 mcg, By Mouth, Daily, 0 Refills, Maintenance, 08/17/23 10:58:00 EST, Partial fill upon patient request if the prescription is for a schedule II opioid drug. Start Date: 08/17/23 Status: Ordered Vitamin E By Mouth, 0 Refills, Maintenance, 08/17/23 10:58:00 EST, Partial fill upon patient request if the prescription is for a schedule II opioid drug. Start Date: 08/17/23 Status: Ordered Voltaren 1% topical gel 1 [...] Health St atus Informant Rectocele Confirmed Active Spider veins Confirmed Active Varicose vein Confirmed Active Social History Social History Type Response Smoking Status Never smoker entered on: 02/05/15 Sex Patient Care team information Care Team Personnel Name: Princess DEVINE, Kanika Riuz Position: Reference Physician Member Role: PCP Address: Address: [address] [place] [id number]- Name: Rosario Nathan RN Position: S ED RN W/OE and Tasks Member Role: Primary Care Nurse Care Team Related Persons Name: ADI MEDELLIN Address: [place] [address] Name: COLE MORA Address: [place] [address]
--- OUTSIDE RECORDS SUMMARY | 2024-05-08 07:54 | XMS_ITS | Continuity of Care Document ---
Author Organization [facility] Address [address] [place] [address]- Care Team Providers Care Basket Turner Name Role Phone Kanika Sánchez MD Primary Care Physician Encounter [facility] Date(s): 05/14/23 - 05/21/23 [facility] [address] [place], [place] [address] Encounter Diagnosis Arm pain, right(Discharge Diagnosis) - 05/14/23 Attending Physician: Ashley Moreira MD Referring Physician: Kanika Sánchez MD Allergies, Adverse Reactions, Alerts Substance Reaction Severity Status morphine hallucinations Active iodinated radiocontrast dyes fevers flu Active Lactose diarrhea Active oxyCODONE Rash Active Medications clonazePAM 1 mg oral tablet 1 tablet = 1 mg, By Mouth, 2 times a day, PRN Other, 0 Refills, Maintenance, 03/07/16 13:42:16 Start Date: 03/07/16 Status: Ordered Cymbalta 20 mg oral enteric coated capsule 2 capsule = 40 mg, By Mouth, Daily, # 180 capsule, 0 Refills, Maintenance, 02/07/16 10:25:11, EC Capsule Start Date: 02/07/16 Status: Ordered ibuprofen 600 mg oral tablet 600 mg, 1, tablet, By Mouth, Every 6 hours, # 56 tablet, Refills 0, Tot. Refills 0, Maintenance, 05/22/16 15:15:29, Route to Pharmacy Electronically, [id number], [id number] Start Date: [...] Diagnosis Diagnosis Type Effective Dates Health Status Cl inical Service Informant Arm pain, right Discharge Diagnosis 05/14/23 Vital Signs Most recent to oldest [Reference Range]: 1 Height 162 cm (05/14/23 10:39 AM) Oxygen Saturation [94-100 %] 97 % (05/14/23 10:39 AM) Pulse Rate [55-90 bpm] 61 bpm (05/14/23 10:39 AM) Blood Pressure [90-138/55-84 mm Hg] 120/ 70mm Hg (05/14/23 10:39 AM) Respiratory Rate [16-30 br/min] 16 br/mi n (05/14/23 10:39 AM) Temperature [96.8-100.4 DegF] 97.1 DegF (05/14/23 10:39 AM) Mode of Delivery (Oxygen) Room air (05/14/23 10:39 AM) Blood pressure sites Arm, left (05/14/23 10:39 AM) Temperature Route Temporal (05/14/23 10:39 AM) Social History Social History Type Response Smoking Status Never smoker entered on: 02/05/15 Sex Patient Care team information Care Team Personnel Name: Kanika Sánchez MD Position: Reference Physician Member Role: PCP Address: Address: [address] [place] [id number]- Name: Jac RICK, Rosario Position: [facility] ED RN W/OE and Tasks Member Role: Primary Care Nurse Care Team Related Persons Name: ADI MEDELLIN Address: [place] [address] Name: COLE MORA Address: [place] [address]
--- OUTSIDE RECORDS SUMMARY | 2024-05-08 07:54 | XMS_ITS | Continuity of Care Document ---
Author Organization [facility] Address [address] [facility] [place] [address]- Care Team Providers Care Business And Marketing Teacher Name Role Phone Ghassan Larios MD Primary Care Physician Encounter 09/19/21 - 09/26/21 [facility] [address], [address] [place], [place] [address] Attending Physician: Amaury Mosley MD Admitting Physician: Name Amaury DEVINE Referring Physician: Name Amaury DEVINE Allergies, Adverse Reactions, Alerts Substance Reaction Severity [...] Maintenance, 05/22/16 15:15:29, Route to Pharmacy Electronically, [id number], [id number] Start Date: 05/22/16 Stop Date: 06/05/16 Status: Ordered Problem List Condition Effective Dates Status Health Status Inform ant Rectocele(Confirmed) Active Varicose vein(Confirmed) Active Social History Social History Type Response Smoking Status Never smoker entered on: 02/05/15 Sex
--- OUTSIDE RECORDS SUMMARY | 2024-05-08 07:54 | XMS_ITS | Continuity of Care Document ---
Author Organization [facility] Address [address] [place] [address]- Care Team Providers Care Environmental Solutions Engineer Name Role Phone Ghassan Larios MD Primary Care Physician Encounter [facility] Date(s): 07/28/20 - 08/04/20 [facility] [address] [place] [address] Encounter Diagnosis Acute cystitis(Discharge Diagnosis) - 07/28/20 Attending Physician: Sammy Flores Referring Physician: Ghassan Larios MD Allergies, Adverse Reactions, Alerts Substance Reaction [...] Maintenance, 05/22/16 15:15:29, Route to Pharmacy Electronically, [id number], [id number] Start Date: 05/22/16 Stop Date: 06/05/16 Status: Ordered Problem List Condition Effective Dates Status Health Status Inform ant Rectocele(Confirmed) Active Varicose vein(Confirmed) Active Diagnosis Diagnosis Type Effective Dates Health Status Cl inical Service Informant Acute cystitis Discharge Diagnosis 07/28/20 Vital Signs Most recent to oldest [Reference Range]: 1 Height 162 cm (07/28/20 10:41 AM) Oxygen Saturation [94-100 %] 100 % (07/28/20 10:41 AM) Pulse Rate [55-90 bpm] 77 bpm (07/28/20 10:41 AM) Blood Pressure [90-138/55-84 mm Hg] 146/ 79mm Hg *H* (07/28/20 10:41 AM) Respiratory Rate [16-30 br/min] 16 br/mi n (07/28/20 10:41 AM) Temperature [96.8-100.4 DegF] 97.7 DegF (07/28/20 10:41 AM) Mode of Delivery (Oxygen) Room air (07/28/20 10:41 AM) Blood pressure sites Arm, left (07/28/20 10:41 AM) Temperature Route Temporal (07/28/20 10:41 AM) Social History Social History Type Response Smoking Status Never smoker entered on: 02/05/15 Sex
--- OUTSIDE RECORDS SUMMARY | 2024-05-08 07:55 | XMS_ITS | Continuity of Care Document ---
Author Organization [facility] Address [address] [facility], [facility] [address] [place] [address]- Care Team Providers Care Floor Assembler Name Role Phone Son Jung MD Primary Care Physician Encounter 09/20/22 - 09/27/22 [facility] [address], [address] [place] [address]- Attending Physician: Son Jung MD Admitting Physician: Son Jung MD Referring Physician: Son Jung MD Allergies, Adverse Reactions, Alerts Substance Reaction [...] Maintenance, 05/22/16 15:15:29, Route to Pharmacy Electronically, [id number], [id number] Start Date: [...] Rectocele Confirmed Active Varicose vein Confirmed Active Results Radiology Reports * Exam Date Time Procedure Performing Provider Status 09/20/22 10:33 AM MM Digital Mammo Screening Stephanie Cazares; Auth (Verified) Notes: (MM Digital Mammo Screening) Reason For Exam: Z12.31 SCREENING RESULT: MM Digital Mammo Screening PROCEDURE: MM Digital Mammo Screening INDICATION: Screening for breast cancer. COMPARISON: Multiple priors, most recently 09/19/2021 TECHNIQUE: Full-field digital CC and MLO 3D tomosynthesis images of both breasts were acquired. Computer-aided detection (CAD) was utilized in the interpretation of this study. DENSITY: The breast tissue is almost entirely fatty. FINDINGS: No suspicious masses, suspicious microcalcifications, or areas of architectural distortion are seen in either breast to suggest malignancy. IMPRESSION: No mammographic evidence of malignancy. RECOMMENDATION: Annual mammographic screening BI-RADS: 1 (Negative) Lay letter mailed to patient WSN: [id number] Ordering Physician: Son Jung MD Dictated By: Thaddeus Luu MD Dictated Date/Time: 09/20/22 12:44 pm Reviewed By: Thaddeus Luu MD Signed By: Thaddeus Luu MD Signed Date/Time: 09/20/22 12:44 pm Transcribed By: WENB Counter Roller Date/Time: 09/20/22 12:42 pm Birads: Social History Social History Type Response Smoking Status Never smoker entered on: 02/05/15 Sex MG Breast Screening * BHSPDANUTA santos S: TRANSCRIBE Thaddeus Luu MD: VERIFY Event Display: Result: Authored Date: [id number] PROCEDURE: MM Digital Mammo Screening INDICATION: Screening for breast cancer. COMPARISON: Multiple priors, most recently 09/19/2021 TECHNIQUE: Full-field digital CC and MLO 3D tomosynthesis images of both breasts were acquired. Computer-aided detection (CAD) was utilized in the interpretation of this study. DENSITY: The breast tissue is almost entirely fatty. FINDINGS: No suspicious masses, suspicious microcalcifications, or areas of architectural distortion are seen in either breast to suggest malignancy. IMPRESSION: No mammographic evidence of malignancy. RECOMMENDATION: Annual mammographic screening BI-RADS: 1 (Negative) Lay letter mailed to patient WSN: [id number] Ordering Physician: Son Jung MD Dictated By: Thaddeus Luu MD Dictated Date/Time: 09/20/22 12:44 pm Reviewed By: Thaddeus Luu MD Signed By: Thaddeus Luu MD Signed Date/Time: 09/20/22 12:44 pm Transcribed By: MINESH Counter Roller Date/Time: 09/20/22 12:42 pm Birads: Patient Care team information Care Team Personnel Name: Son Jung MD Position: S GIFTED PROGRAM TEACHER MD Member Role: PCP Address: Address: [address] [place] [address] GIFTED PROGRAM TEACHER Group, [address] Name: Rosario Nathan RN Position: [facility] ED RN W/OE and Tasks Member Role: Primary Care Nurse Care Team Related Persons Name: ADI MEDELLIN Address: [place] [address] Name: COLE MORA Address: [place] [address]
--- OUTSIDE RECORDS SUMMARY | 2024-05-08 07:55 | XMS_ITS | Continuity of Care Document ---
Author Organization [facility] Address [address] [address]- Care Team Providers Care Maintainer Central Office Name Role Phone Kanika Sánchez MD Primary Care Physician [place] [facility] [place] 08/17/23 - 08/24/23 [facility] [address] [address]- [place] Encounter Diagnosis Symptomatic varicose veins of both lower extremities(Discharge Diagnosis) - 08/17/23 Spider veins(Discharge Diagnosis) - 08/17/23 Attending Physician: Martha Zamora MD Admitting Physician: Martha Zamora MD Referring Physician: Kanika Sánchez MD Allergies, [...] Maintenance, 05/22/16 15:15:29, Route to Pharmacy Electronically, [id number], [id number] Start Date: [...] veins Confirmed Active Varicose vein Confirmed Active Diagnosis Diagnosis Type Effective Dates Health Status Clinical Service Informant Symptomatic varicose veins of both lower extremities Discharge Diagnosis 08/17/23 Spider veins Discharge Diagnosis 08/17/23 Vital Signs Most recent to oldest [Reference Range]: 1 Height 162 cm (08/17/23 10:56 AM) Weight 72 kg (08/17/23 10:56 AM) Oxygen Saturation [94-100 %] 98 % (08/17/23 10:56 AM) Pulse Rate [55-90 bpm] 65 bpm (08/17/23 10:56 AM) Body Mass Index [18.5-24.99 kg/m2] 27.43 kg/m2 *H* (08/17/23 10:56 AM) Blood Pressure [90-138/55-84 mm Hg] 124/ 62mm Hg (08/17/23 10:56 AM) Mode of Delivery (Oxygen) Room air (08/17/23 10:56 AM) Blood pressure sites Arm, left (08/17/23 10:56 AM) Weight Obtained Via Standing scale (08/17/23 10:56 AM) Social History Social History Type Response Smoking Status Never smoker entered on: 02/05/15 Sex Note * Estrella Newton: PERFORM, SIGN, VERIFY Event Display: Patient Education/Instruction Authored Date: [id number] [facility] Clinical Summary Name ROVERTO MORA Age 73 Years 1950 PCP Princess DEVINE, Kanika Ruiz PCP Visit Date 08/17/2023 09:44:00 Additional Instructions: Scheduled Appointments?? Future Appointments ?No Future Appointments Scheduled Follow-Up Instructions ?? With: Address: When: Noah DEVINE, Martha Wasserman [address] [facility] [place] [address] Comments: schedule as needed for sclerotherapy Diagnosis Medications: Please continue your medications until treatment is completed or stopped by your provider. Discuss any questions related to medications with your provider. Medications to Continue with No Changes These medications were not printed or sent to your pharmacy Ascorbic Acid (Vitamin C) Oral Daily. Next Dose: Cholecalciferol (Vitamin D3 oral tablet) 1 tab(s) Oral Daily. Next Dose: Clonazepam (clonazePAM 1 mg oral tablet) 1 tab(s) Oral twice a day as needed Other. Next Dose: Collagen Daily. Next Dose: Cyanocobalamin (Vitamin B12) Daily. Next Dose: Diclofenac Topical (Voltaren 1% topical gel) 1 amita Topically 4 times a day as needed for pain. Refills: 0. Next Dose: Duloxetine (Cymbalta 20 mg oral enteric coated capsule) 2 capsule Oral Daily. Next Dose: Durable Medical Equipment (Compression- Lower Extremity (Knee High)) 20-30 mmHg graduated compression stockings Dx: venous insufficiency. Refills: 2. Next Dose: Ibuprofen (ibuprofen 600 mg oral tablet) 1 tab(s) Oral every 6 hours for 14 Days. Refills: 0. Next Dose: Magnesium Carbonate 54 Milligram Oral Daily. Next Dose: Multivitamin Daily. Next Dose: turmeric Oral Daily. Next Dose: Vitamin E Oral. Next Dose: Allergy Info:?? oxyCODONE; Lactose; iodinated radiocontrast dyes; morphine Medications Given This Visit Future Orders ?No future orders Vital Signs Height 162 cm Weight 72 kg BMI 27.43 kg/m2 Blood Pressure 124 mm Hg/62 mm Hg Temperature Pulse Rate 65 bpm Respiratory Rate 02 Sat Mode of Delivery 98 %/Room air You can now view a summary of your hospital visit from the comfort of your home through a free online portal called [employer]. [employer] is a website that allows you to securely view your medical information including discharge summary, medications and follow-up visits. ??You can alsosend a secure electronic message to your doctor???s office to request appointments, renew medications or just ask a question. You can enroll at [email or web address] or register during your next office visit. [...] primary care provider, you may find a [facility] provider by calling [facility] [employer] Link at [phone]. [facility], in keeping with [facility] guidance, no longer requires face masks for [...] Physician Member Role: PCP Address: Address: [address] [place] [address]- Name: Rosario Nathan RN Position: [facility] ED RN W/OE and Tasks Member Role: Primary Care Nurse Care Team Related Persons Name: ADI MEDELLIN Address: [place] [address] Name: COLE MORA Address: [place] [address]
--- OUTSIDE RECORDS SUMMARY | 2024-05-08 07:55 | XMS_ITS | Continuity of Care Document ---
Author Organization [facility] Address [address] [place] [address]- Care Team Providers Care Etl Bi Developer Name Role Phone Harriet DEVINE, Ghassan Mendosa Primary Care Physician [place] [facility] [place] 02/05/20 - 06/04/20 [facility] [address] [place] [address] [facility] Attending Physician: Trina Alejandra MD Admitting Physician: Trina Alejandra MD Referring Physician: Not on Staff, Referring MD Allergies, Adverse Reactions, Alerts Substance Reaction [...] Maintenance, 05/22/16 15:15:29, Route to Pharmacy Electronically, [id number], [id number] Start Date: 05/22/16 Stop Date: 06/05/16 Status: Ordered Problem List Condition Effective Dates Status Health Status Inform ant Rectocele(Confirmed) Active Varicose vein(Confirmed) Active Social History Social History Type Response Smoking Status Never smoker entered on: 02/05/15 Sex
--- OUTSIDE RECORDS SUMMARY | 2024-05-08 07:55 | XMS_ITS | Continuity of Care Document ---
Author Organization [facility] Address [address] [place] [address]- Care Team Providers Care Assistant Manager Trainee Name Role Phone Kanika Sánchez MD Primary Care Physician [place] [facility] [place] 12/23/23 - 12/30/23 [facility] [address] [place], [place] [address] Encounter Diagnosis Chalazion(Discharge Diagnosis) - 12/23/23 Attending Physician: Ashley Moreira MD Referring Physician: Kanika Sánchez MD Allergies, Adverse Reactions, Alerts Substance Reaction Severity Status morphine hallucinations Active oxyCODONE Rash Active iodinated radiocontrast dyes fevers flu Active Lactose diarrhea Active Medications clonazePAM 1 mg oral tablet [...] Maintenance, 05/22/16 15:15:29, Route to Pharmacy Electronically, [id number], [facility] Start Date: [...] Diagnosis Diagnosis Type Effective Dates Health Status Clini clemencia Service Informant Chalazion Discharge Diagnosis 12/23/23 Vital Signs Most recent to oldest [Reference Range]: 1 Height 162 cm (12/23/23 10:31 AM) Oxygen Saturation [94-100 %] 96 % (12/23/23 10:31 AM) Pulse Rate [55-90 bpm] 70 bpm (12/23/23 10:31 AM) Blood Pressure [90-138/55-84 mm Hg] 119/ 63mm Hg (12/23/23 10:31 AM) Respiratory Rate [16-30 br/min] 18 br/mi n (12/23/23 10:31 AM) Temperature [96.8-100.4 DegF] 98.2 DegF (12/23/23 10:31 AM) Mode of Delivery (Oxygen) Room air (12/23/23 10:31 AM) Blood pressure sites Arm, right (12/23/23 10:31 AM) Temperature Route Oral (12/23/23 10:31 AM) Social History Social History Type Response Smoking Status Never smoker entered on: 02/05/15 Sex Patient Care team information Care Team Personnel Name: Kanika Sánchez MD Position: Reference Physician Member Role: PCP Address: Address: [address] [place] [address]- Name: Rosario Nathan RN Position: [facility] ED RN W/OE and Tasks Member Role: Primary Care Nurse Care Team Related Persons Name: ADI MEDELLIN Address: [place] [address] Name: COLE MORA Address: [place] [address]
--- OUTSIDE RECORDS SUMMARY | 2024-05-08 07:55 | XMS_ITS | Continuity of Care Document ---
Author Organization [facility] Address [address] [address]- Care Team Providers Care Medical Records Library Professor Name Role Phone Kanika Sánchez MD Primary Care Physician [phone] En[place] [facility] [place] [id number] Date(s): 08/17/23 - 09/16/23 [facility] [address] [address]- Attending Physician: Jet Loco Admitting Physician: Admtr, [...] Maintenance, 05/22/16 15:15:29, Route to Pharmacy Electronically, [id number], [id number] Start Date: [...] Care Team Personnel Name: Princess DEVINE, Kanika Ruiz Position: Reference Physician Member Role: PCP Address: Address: [address] [place] [address]- Name: Rosario Nathan RN Position: S ED RN W/OE and Tasks Member Role: Primary Care Nurse Care Team Related Persons Name: ADI MDEELLIN Address: [place] [address] Name: COLE MORA Address: [place] [address]
--- OUTSIDE RECORDS SUMMARY | 2024-05-08 07:55 | XMS_ITS | Continuity of Care Document ---
Author Organization [facility] Address [address] [place] [address]- Care Team Providers Care Fruit Farmer Name Role Phone Not on Staff, PCP Primary Care Physician Unavail able Encounter [facility] Date(s): 05/17/22 - 05/24/22 [facility] [address] [place] [address]- Encounter Diagnosis Strain of left wrist(Discharge Diagnosis) - 05/17/22 Attending Physician: Sammy Flores Allergies, Adverse Reactions, Alerts Substance Reaction Severity [...] Maintenance, 05/22/16 15:15:29, Route to Pharmacy Electronically, [id number], [id number] Start Date: [...] Date: 05/17/22 Status: Ordered Problem List Condition Effective Dates Status Health Status Inform ant Rectocele(Confirmed) Active Varicose vein(Confirmed) Active Diagnosis Diagnosis Type Effective Dates Health Status Cl inical Service Informant Strain of left wrist Discharge Diagnosis 05/17/22 Vital Signs Most recent to oldest [Reference Range]: 1 Height 162 cm (05/17/22 2:33 PM) Oxygen Saturation [94-100 %] 96 % (05/17/22 2:33 PM) Pulse Rate [55-90 bpm] 64 bpm (05/17/22 2:33 PM) Blood Pressure [90-138/55-84 mm Hg] 148/ 93mm Hg *H* (05/17/22 2:33 PM) Respiratory Rate [16-30 br/min] 20 br/mi n (05/17/22 2:33 PM) Temperature [96.8-100.4 DegF] 96.7 DegF *L* (05/17/22 2:33 PM) Mode of Delivery (Oxygen) Room air (05/17/22 2:33 PM) Blood pressure sites Arm, left (05/17/22 2:33 PM) Temperature Route Temporal (05/17/22 2:33 PM) Social History Social History Type Response Smoking Status Never smoker entered on: 02/05/15 Sex
--- OUTSIDE RECORDS SUMMARY | 2024-05-08 07:55 | XMS_ITS | Continuity of Care Document ---
Author Organization [facility] Address [address] [place] [address], [address] [place] [address]- Care Team Providers Care Prescription Benefit Specialist Name Role Phone Ghassan Larios MD Primary Care Physician [place] [facility] [place] [place] 09/28/20 - 11/25/20 [facility] [address] [place] [address], [address] [place], [place] [address] Attending Physician: Sacha Muñiz MD Referring Physician: Ghassan Larios MD Allergies, Adverse [...] Maintenance, 05/22/16 15:15:29, Route to Pharmacy Electronically, [id number], [id number] Start Date: 05/22/16 Stop Date: 06/05/16 Status: Ordered Problem List Condition Effective Dates Status Health Status Inform ant Rectocele(Confirmed) Active Varicose vein(Confirmed) Active Social History Social History Type Response Smoking Status Never smoker entered on: 02/05/15 Sex
--- OUTSIDE RECORDS SUMMARY | 2024-05-08 07:55 | XMS_ITS | Continuity of Care Document ---
Author Organization [facility] Address [address] [place] [address]- Care Team Providers Care Diabetes Territory Manager Name Role Phone Not on Staff, PCP Primary Care Physician Unavail able En[place] [facility] [place] Date(s): 05/17/22 - 06/16/22 [facility] [address] [place], [place] [email or web address] Attending Physician: Jet Loco Admitting Physician: AdmJet wells Referring Physician: AdmtrJet Allergies, Adverse Reactions, Alerts Substance Reaction Severity [...] Maintenance, 05/22/16 15:15:29, Route to Pharmacy Electronically, [id number], [facility] Start Date: [...] Status Never smoker entered on: 02/05/15 Sex Care Team Personnel Name: Not on Staff, PCP
--- OUTSIDE RECORDS SUMMARY | 2024-05-08 07:55 | XMS_ITS | Continuity of Care Document ---
Author Organization [facility] Address [address] [place] [address], [address] [place] [address]- Care Team Providers Care Chair Frame Builder Name Role Phone Ghassan Larios MD Primary Care Physician [place] [facility] [place] 10/26/20 - 11/25/20 [facility] [address] [place] [address], [address] [place], [place] [address] Attending Physician: Admtr, Jet Admitting Physician: Admtr, Jet Referring Physician: Admtr, [...] Maintenance, 05/22/16 15:15:29, Route to Pharmacy Electronically, [id number], [id number] Start Date: 05/22/16 Stop Date: 06/05/16 Status: Ordered Problem List Condition Effective Dates Status Health Status Inform ant Rectocele(Confirmed) Active Varicose vein(Confirmed) Active Social History Social History Type Response Smoking Status Never smoker entered on: 02/05/15 Sex
--- OUTSIDE RECORDS SUMMARY | 2024-05-08 07:55 | XMS_ITS | Continuity of Care Document ---
Author Organization [facility] Address [address] [place] [address]- Care Team Providers Care Supervisor Inspection Department Name Role Phone Kanika Sánchez MD Primary Care Physician [place] [facility] [place] [place] [id number] Date(s): 05/14/23 - 06/13/23 [facility] [address] [place], [place] [address] Attending Physician: Jet Loco Admitting Physician: AdmtrJet Referring Physician: Admtr, Ar8 Allergies, Adverse Reactions, [...] Maintenance, 05/22/16 15:15:29, Route to Pharmacy Electronically, [id number], [facility] Start Date: [...] Rectocele Confirmed Active Varicose vein Confirmed Active Social History Social History Type Response Smoking Status Never smoker entered on: 02/05/15 Sex Patient Care team information Care Team Personnel Name: Princess DEVINE, Kanika Ruiz Position: Reference Physician Member Role: PCP Address: Address: [address] [place] [address]- Name: Rosario Nathan RN Position: S ED RN W/OE and Tasks Member Role: Primary Care Nurse Care Team Related Persons Name: MEDELLIN, ADI Address: [place] [address] Name: COLE MORA Address: [place] [address]
--- OUTSIDE RECORDS SUMMARY | 2024-05-08 07:55 | XMS_ITS | Continuity of Care Document ---
Author Organization [facility] Address [address] [facility] [place] [address]- Care Team Providers Care Verifier Operator Name Role Phone Kanika Sánchez MD Primary Care Physician [phone] Encounter 07/12/23 - 07/19/23 [facility] [address], [address] [place] [address]- Attending Physician: Mia CORCORAN, Merle Jhaveri Admitting Physician: Mia CORCORAN, Merle Jhaveri Referring Physician: Mia CORCORAN, Merle Jhaveri Allergies, Adverse Reactions, Alerts Substance Reaction Severity [...] Maintenance, 05/22/16 15:15:29, Route to Pharmacy Electronically, [id number], [facility] Start Date: [...] Exam Date Time Procedure Performing Provider Status 07/12/23 9:48 AM US Liver Maida Michele; Auth (V erified) Notes: (US Liver) Reason For Exam: K76.0 FATTY LIVER RESULT: US Liver US Liver Reason: K76.0 FATTY LIVER COMPARISON: CT abdomen 05/11/2023 IMAGING TECHNIQUE: Grayscale and color Doppler ultrasound examination of the liver. FINDINGS: Exam somewhat limited by overlying bowel gas. Liver: Diffusely echogenic parenchyma. No suspicious lesion. Smooth hepatic contour. Main portal vein patent with normal hepatopetal direction of flow. Biliary Tree: No intrahepatic bile duct dilation is identified. CBD was not visualized. IMPRESSION: Echogenic liver likely representing hepatic steatosis. No suspicious lesion. I have personally reviewed the images and I agree with this report. WSN: [id number] Ordering Physician: Merle Bellamy Dictated By: Laz Carballo MD Dictated Date/Time: 07/12/23 11:52 a Reviewed By: Vipin Patel MD Signed By: Vipin Patel MD Signed Date/Time: 07/12/23 11:57 am Transcribed By: MINESH Transcribed Date/Time: 07/12/23 10:34 am Social History Social History Type Response Smoking Status Never smoker entered on: 02/05/15 Sex Patient Care team information Care Team Personnel Name: Kanika Sánchez MD Position: Reference Physician Member Role: PCP Address: Address: [address] [place] [address]- Name: Rosario Nathan RN Position: S ED RN W/OE and Tasks Member Role: Primary Care Nurse Care Team Related Persons Name: ADI MEDELLIN Address: [place] [address] Name: COLE MORA Address: [place] [address]
--- OUTSIDE RECORDS SUMMARY | 2024-05-08 07:55 | XMS_ITS | Continuity of Care Document ---
Author Organization [facility] Address [address] [place] [address]- Care Team Providers Care Production Grader Name Role Phone Harriet DEVINE, Ghassan Mendosa Primary Care Physician [phone] [place] [facility] [place]): [place]20 - 06/04/20 [facility] [address] [place] [address] [facility] Attending Physician: Admtr, Reggie8 Admitting Physician: Admtr, Ar8 Referring Physician: Admtr, Ar8 Allergies, Adverse Reactions, [...] Maintenance, 05/22/16 15:15:29, Route to Pharmacy Electronically, [id number], [id number] Start Date: 05/22/16 Stop Date: 06/05/16 Status: Ordered Problem List Condition Effective Dates Status Health Status Inform ant Rectocele(Confirmed) Active Varicose vein(Confirmed) Active Social History Social History Type Response Smoking Status Never smoker entered on: 02/05/15 Sex
--- OUTSIDE RECORDS SUMMARY | 2024-05-08 07:55 | XMS_ITS | Continuity of Care Document ---
Author Organization [facility] Address [address] [facility] [place] [address]- Care Team Providers Care Casting Technician Name Role Phone Name Amaury DEVINE Primary Care Physician Encounter 04/07/22 - 04/14/22 [facility] [address], [address] [place] [address]- Attending Physician: Son Jung MD Admitting Physician: [...] Maintenance, 05/22/16 15:15:29, Route to Pharmacy Electronically, [id number], [id number] Start Date: 05/22/16 Stop Date: 06/05/16 Status: Ordered Problem List Condition Effective Dates Status Health Status Inform ant Rectocele(Confirmed) Active Varicose vein(Confirmed) Active Results Radiology Reports * Exam Date Time Procedure Performing Provider Status 04/07/22 2:18 PM Dexa Bone Density (Axial) Ema Alejandro colton; Auth (Verified) Notes: (Dexa Bone Density (Axial)) Reason For Exam: Z78.0 POST MENOPAUSAL RESULT: DEXA BONE DENSITY (AXIAL) Bone Density Report Name: ROVERTO MORA Age: 72 Sex: Female Ethnicity: White Date of : 1950 Indication: POSTMENOPAUSAL. Referring Provider: SON JUNG MD Study: Bone densitometry was performed. Exam Date: April 07, 2022 Accession number: [id number] Bone Density: Region BMD T-score Z-score Classification AP Spine (L1-L4) 1.005 -0.4 2.0 Normal Femoral Neck (Left) 0.836 -0.1 1.9 Normal Total Hip (Left) 0.931 -0.1 1.6 Normal World Health Organization criteria for BMD impression classify patients as: Normal (T-score at or above -1.0), Osteopenia (T-score between -1.0 and -2.5), or Osteoporosis (T-score at or below -2.5). 10-year Fracture Risk: FRAX not reported because: All T-scores for Spine Total, Hip Total, Femoral Neck at or above -1.0 Clinical Information Provided by Patient: Has used the following medications: Vitamin D, Calcium Has the following medical conditions: Hysterectomy Patient maximum height was 63 Menopause Age: 45 Onset of menses at age 9 Number of children 2 Impression: The patient has normal bone density as determined by WHO criteria. Reported by: Thaddeus Luu M.D. on 04/14/2022 10:55:00 AM. Dictated By: Thaddeus Luu MD Dictated Date/Time: 04/14/22 10:56 a Reviewed By: Thaddeus Luu MD Signed By: Thaddeus Luu MD Signed Date/Time: 04/14/22 10:56 am Transcribed By: MINESH Transcribed Date/Time: 04/14/22 10:56 am Social History Social History Type Response Smoking Status Never smoker entered on: 02/05/15 Sex
--- OUTSIDE RECORDS SUMMARY | 2024-05-08 07:55 | XMS_ITS | Continuity of Care Document ---
Author Organization [facility] Address [address] [place] [address], [address] [place] [address]- Care Team Providers Care Church Administrator Name Role Phone Ghassan Larios MD Primary Care Physician [phone] Encounter [facility] [place] Date(s): 10/26/20 - 11/02/20 [facility] [address] [place] [address], [address] [place], [place] [address] Attending Physician: Sacha Muñiz MD Referring Physician: Ghassan Larios MD Allergies, Adverse Reactions, Alerts Substance Reaction Severity Status morphine hallucinations Active iodinated radiocontrast dyes fevers flu Active oxyCODONE Rash Active Lactose diarrhea Active Medications clonazePAM 1 [...] Maintenance, 05/22/16 15:15:29, Route to Pharmacy Electronically, [id number], [id number] Start Date: 05/22/16 Stop Date: 06/05/16 Status: Ordered Problem List Condition Effective Dates Status Health Status Inform ant Rectocele(Confirmed) Active Varicose vein(Confirmed) Active Vital Signs Most recent to oldest [Reference Range]: 1 Height 162 cm (10/25/20 10:22 AM) Weight 78 kg (10/25/20 10:22 AM) Body Mass Index [18.5-24.99] 29.72 *H* (10/25/20 10:22 AM) Social History Social History Type Response Smoking Status Never smoker entered on: 02/05/15 Sex
--- OUTSIDE RECORDS SUMMARY | 2024-05-08 07:55 | XMS_ITS | Continuity of Care Document ---
Author Organization [facility] Address [address] [place] [address]- Care Team Providers Care Wire Stockkeeper Name Role Phone Kanika Sánchez MD Primary Care Physician Encounter [facility] [place] Date(s): 12/23/23 - 01/22/24 [facility] [address] [place], [place] [address] Attending Physician: Admtr, [id number] Admitting Physician: Admtr, [...] Maintenance, 05/22/16 15:15:29, Route to Pharmacy Electronically, [id number], [id number] Start Date: [...] Reference Physician Member Role: PCP Address: Address: [address] [place] [id number]- Name: Rosario Nathan RN Position: S ED RN W/OE and Tasks Member Role: Primary Care Nurse Care Team Related Persons Name: ADI MEDELLIN Address: [place] [address] Name: COLE MORA Address: [place] [address]
--- OUTSIDE RECORDS SUMMARY | 2024-05-08 07:55 | XMS_ITS | Continuity of Care Document ---
Author Organization [facility] Address [address] [address]- Care Team Providers Care Hedis Registered Nurse Rn Name Role Phone Princess DEVINE, Kanika Ruiz Primary Care Physician Encounter [facility] [place] Date(s): 08/17/23 - 08/24/23 [facility] [address] [address]- Attending Physician: Martha Zamora MD Admitting Physician: Martha Zamora MD Referring Physician: Martha Zamora MD Allergies, Adverse Reactions, Alerts Substance Reaction [...] Maintenance, 05/22/16 15:15:29, Route to Pharmacy Electronically, [id number], [id number] Start Date: [...] Status Never smoker entered on: 02/05/15 Sex Cardiology * Event Display: VL Venous Dup Scan Venous Insuf LE Bilat Authored Date: [id number] Demographics Procedure Information Patient name: ABBY LAYNE Procedure date: 08/17/2023 9:53 AM Corporate Proc. sub type: Veins: Lower Extremities Venous Insufficiency, Venous Duplex Scan Gender: Female Venous Insuf LE Bilat. Date of : 1950 Accession No: [id number] Age: 73 year(s) Account No: [id number] Patient status: Routine Procedure Staff Admit Status: Outpatient Attending Physician: Martha Zamora MD Probe: L 2-9 Ordering physician: Martha Zamora MD Technical quality: Adequate visualization Referring Physician: Martha Zamora MD Facility: [facility] [employer] [facility] Card Disc Pad Grinder: La Nena Byrnes RDMS Interpreting physician: Jett Ray MD Study location: [address] [facility] Procedure consent obtained: Indications No Varicose Veins Right Lower Extremity with Pain and Varicose Veins Left Lower Extremity with Pain. LE Venous Insufficiency Findings Right Left Reflu Reflu AP x AP x DIAM Time DIAM Time Location (mm) (sec) Thrombosis (mm) (sec) Thrombosis Common Femoral 1 1.5 Prox Femoral 0 0 Mid Femoral 0 0 Dist Femoral 0 0 Popliteal 0 0 Right Left Reflu Reflu AP x AP x DIAM Time DIAM Time Location (mm) (sec) Thrombosis (mm) (sec) Thrombosis Sapheno Femoral Junction 6.4 0 7.3 5.8 GSV High Thigh 2.1 0 4.2 0 SSV High Calf 3.5 0 Physician Conclusions Summary: Right side: There is no reflux in the Great Saphenous vein. Unable to visualize the vein from the thigh to calfarea. There is a branch off the junction with no reflux. There is no evidence of deep vein thrombosis in the segments insonated. There is deep vein reflux. Unable to visualize the distal Small Saphenous vein. Left side: There is reflux lasting 5.8 seconds at the Saphenofemoral Junction in the Great Saphenous vein. Unable to visualize the vein from the thigh to calf area. There is a branch off the junction measuring 0.3 cm with 9.5 seconds of reflux. There is no evidence of deep vein thrombosis in the segments insonated. There is deep vein reflux. Unable to visualize the Small Saphenous vein. Exam was performed with patient in Reverse Trendelenburg position. * Event Display: VL Venous Dup Scan Venous Insuf LE Bilat Authored Date: [id number] Patient Care team information Care Team Personnel Name: Kanika Sánchez MD Position: Reference Physician Member Role: PCP Address: Address: [address] [place] [address]- Name: Rosario Nathan RN Position: S ED RN W/OE and Tasks Member Role: Primary Care Nurse Care Team Related Persons Name: ADI MEDELLIN Address: [place] [address] Name: COLE MORA Address: [place] [address]
--- OUTSIDE RECORDS SUMMARY | 2024-05-08 07:55 | XMS_ITS | Continuity of Care Document ---
Author Organization [facility] Address [address] [facility] [place] [address]- Care Team Providers Care Community Placement Worker Name Role Phone Kanika Sánchez MD Primary Care Physician Encounter 05/11/23 - 05/18/23 [facility] [address], [address] [place] [address]- Attending Physician: Brittany Tate Admitting Physician: Brittany Tate Referring Physician: Brittany Tate Allergies, Adverse Reactions, Alerts Substance Reaction Severity [...] Maintenance, 05/22/16 15:15:29, Route to Pharmacy Electronically, [id number], [id number] Start Date: [...] List Condition Confirmation Course Effective Dates Status Jayce Love Rectocele Confirmed Active Varicose vein Confirmed Active Results Radiology Reports * Exam Date Time Procedure Performing Provider Status 05/11/23 4:[address] Abd W/O Contrast Harvey Crowley; Mukesh h (Verified) Notes: (CT Abd W/O Contrast) Reason For Exam: N28.89 OTHER SPECIFIED DISORDERS OF KIDNEY AND URETER RESULT: CT Abd W/O Contrast CT Abd W/O Contrast Reason: N28.89 OTHER SPECIFIED DISORDERS OF KIDNEY AND URETER; Renal mass, prev imaging at [facility] was documented as a 0.3 cm echogenic lesion in the interpolar region of the right kidney. Also c/o possible umbilical or surgical hernia umbilicus. RUQ area s/p cholecystectomy Clinical Question(s): Other: TECHNIQUE: Helical CT scan was performed through the abdomen without IV contrast. Images are formatted in axial, sagittal and coronal planes. This study was performed without oral contrast. Weight-based protocol using automatic tube modulation was used to optimize exposure parameters. CTDIvol Body: 14.57 mGy, DLP Body: 484 mGy*cm. COMPARISON: CT abdomen pelvis with contrast 01/20/2015. Outside ultrasound is not available for comparison. FINDINGS: [employer] Worker View Findings, Lines and Tubes: None. Visualized Chest: Minimal scarring lingula. Dependent atelectasis both lower lobes. No consolidation. Normal cardiac size. No pleural or pericardial effusion. Diaphragm: Normal. Liver: Normal. Gallbladder: Absent consistent with prior cholecystectomy. Bile ducts: No biliary ductal dilation. Spleen: Normal. Pancreas: Normal. Adrenal glands: Normal. Kidneys and ureters: No hydronephrosis, stones, or noncontrast evidence of suspicious masses. Stomach, small bowel, and large bowel: Stomach, small bowel and large bowel are normal in caliber. No evidence of bowel obstruction. No acute inflammatory process of the bowel. She also scattered diverticula descending colon. Normal appendix. A few duodenal diverticula, largest which is in the distal third portion. Peritoneum and retroperitoneum: No ascites or pneumoperitoneum. No omental or mesenteric lesions. Incompletely imaged high attenuation left adnexal lesion which measures approximately 2.0 x 2.4 cm, previously approximately 2.8 x 2.0 cm on 01/20/2015 when measured in a similar fashion. Lymph nodes: No enlarged lymph nodes. Blood vessels: Moderate atherosclerotic vascular calcification. No aortic aneurysm. Abdominal wall: There are small fat-containing umbilical hernia. Bones: No acute abnormality. Mild degenerative changes of the lumbar spine. IMPRESSION: 1. No suspicious renal mass identified within the limitations of noncontrast technique. Note however the documented within the lesion was small in size (approximately 0.3 cm) and may be relative preservation of the study. Further subsequent follow-up surveillance if desired would be better obtainedwith ultrasound. 2. Scattered colonic diverticula without evidence diverticulitis WSN: [id number] Ordering Physician: Brittany Tate Dictated By: Vipin Jordan MD Dictated Date/Time: 05/14/23 11:35 a Reviewed By: Vipin Jordan MD Signed By: Vipin Jordan MD Signed Date/Time: 05/14/23 11:35 am Transcribed By: MINESH Transcribed Date/Time: 05/14/23 11:18 am Social History Social History Type Response Smoking Status Never smoker entered on: 02/05/15 Sex Patient Care team information Care Team Personnel Name: Kanika Sánchez MD Position: Reference Physician Member Role: PCP Address: Address: [address] [place] [id number]- Name: Rosario Nathan RN Position: S ED RN W/OE and Tasks Member Role: Primary Care Nurse Care Team Related Persons Name: ADI MEDELLIN Address: [place] [address] Name: COLE MORA Address: [place] [address]
--- OUTSIDE RECORDS SUMMARY | 2024-05-08 07:55 | XMS_ITS | Continuity of Care Document ---
Author Organization [facility] Address [address] [place] [address] [address], [address] [place] [address]- Care Team Providers Care Size Mixer Name Role Phone Ghassan Larios MD Primary Care Physician [phone] Encounter [facility] Date(s): 09/28/20 - 10/28/20 [facility] [address] [place] [address] Drive, [address] [place], [place] [address] Allergies, Adverse Reactions, Alerts Substance Reaction Severity [...] Maintenance, 05/22/16 15:15:29, Route to Pharmacy Electronically, [id number], [id number] Start Date: 05/22/16 Stop Date: 06/05/16 Status: Ordered Problem List Condition Effective Dates Status Health Status Inform ant Rectocele(Confirmed) Active Varicose vein(Confirmed) Active Social History Social History Type Response Smoking Status Never smoker entered on: 02/05/15 Sex
[2024-05-08] MEDS: Gabapentin 300 MG CAPSULE PO (08:40)
[2024-05-08] MEDS: methocarbamoL 750 MG TABLET PO (08:41)
[2024-05-08] MEDS: Lactated Ringers 1,000 ML 100 ML IVCONT (08:53)
--- NOTE | 2024-05-08 08:54 | MHC.SHP ---
Pre-Procedural Eval Section A - 24 Hr Update-Section A only Date of Service: 05/08/24 The patient is an INPATIENT: No Section B - Complete if H&P > 30 days Chief Complaint: Spinal stenosis, lumbar region without neurogenic Details of Present Illness: Neurogenic claudication with bilateral leg pain Allergies: Allergies Allergy/AdvReac Type Severity Reaction Status Date / Time Iodinated Contrast Media Allergy Severe Anaphylaxis Verified 05/08/24 08:02 [IV Contrast Dye] iodine Allergy Severe Anaphylaxis Verified 05/08/24 08:02 morphine [MORPHINE] Allergy Severe HALLUCINATI Verified 05/08/24 08:02 ONS cyclobenzaprine Allergy Intermediate Gastrointestinal Verified 05/08/24 08:02 [From Flexeril] Upset oxycodone [OXYCODONE] AdvReac Intermediate causes Verified 05/08/24 08:02 confusion but no real allergy Review of Systems Sugical H&P ROS: Negative: Constitution, Cardiovascular, Respiratory, Neurological, Psychiatric, Hem-Onc, Allergic/Immunologic, Gastrointestinal, Genitourinary, Musculoskeletal, Integumentary, Endocrine and Eyes/Ears/Nose/Throat Exam Surgical H&P Exam: Normal: HEENT, Normal: Heart, Normal: Lungs, Normal: Extremities, Normal: Abdomen, Normal: Skin (Awake alert) and Normal: Neurological Plan Diagnosis/Plan: Unchanged I have reviewed the history and physical and performed a pertinent physical examination on my patient. No changes have occurred unless specified. L4-5 decompression Time Spent With Patient Time: Total time managing care of this patient today _ 5 ___ minutes.
--- NOTE | 2024-05-08 10:03 | W.PM.OPN ---
Operative Note Operative Note Date of Service: 05/08/24 Narrative: Preoperative Diagnosis: L4-5 spinal stenosis/lateral recess stenosis/neural foraminal stenosis Operation: L4-5 Laminotomy, Partial facetectomy and foraminotomy with use of microscope Consent Informed Consent was obtained for this operation. I have explained the nature, purpose and benefits of the operation. I have discussed the risks and benefit of the operation including possible complications or adverse events with patient/family. Alternative(s) were discussed with the patient with their relative benefits and risks as well as the consequences of not accepting the operation were included in obtaining consent. Surgeon: ROSIO PHILLIPS MD, PHD Procedure Assisted By: Jimenez Black Pac Description of Procedure This 74-year-old female suffering from neurogenic claudication. MRI shows moderate L4-5 spinal stenosis.. The patient was offered a decompression. The procedure complications were explained. The patient was consented. The patient was brought to the operating room and endotracheally intubated. The patient was turned in prone position on the Galileo frame. Prep and drape was done followed by timeout. The Physician bookkeeper assistant provided access. A mid lumbar incision was made followed by release of the paravertebral muscle on the left side to expose the L4-5 lamina and facet joints. An intraoperative x-ray was obtained to confirm the correct level. The microscope was brought in. I took over the procedure. The high-speed drill was used to do a L4-5 laminotomy until flavum ligament was reached. A #2 Kerrison was used to expand the laminotomy near flush to the pedicles and to include a partial facetectomy. The flavum ligament was opened and resected with a #3 Kerrison to decompress the underlying thecal sac. The flavum ligament was removed to decompress the lateral recess and the exiting L5 nerve rootbilaterally. A long nerve hook could be easily passed along the medial side of the pedicles as a sign of adequate decompression. Then the patient was turned contralaterally. The spinous process was undercut and in this way I was able to reach and decompress the contralateral side. The microscope was removed. Hemostasis was done. The physician bookkeeper assistant close the Incision in 2 layers. Steri-Strips were used to approximate incision. An OpSite with Tegaderm was used to cover the incision. All sponge needle counts were correct. Patient was extubated and transported in stable is to recovery room. Anesthesia: General Estimated Blood Loss (ml): 15 Complications: None Duration of Surgery: Under 60 Minutes Postoperative Plan: Discharge to home
--- NOTE | 2024-05-08 10:12 | PM.DS ---
DS: Providers Provider Date of Service: 05/08/24 Primary care physician: Kanika Sánchez MD DS: Summary Time Attestation Discharge Coordination Time (in mins): 15 Quality: Safe Use of Opioids Does Pt have an Active Cancer Diagnosis on the Problem List?: No Quality: Stroke Does the patient have a stroke diagnosis?: No Physical Exam Vital Signs: Vital Signs: Last Vital Signs Temp 98.6 F 05/08/24 08:08 Pulse 72 05/08/24 08:08 Resp 16 05/08/24 08:08 BP 143/60 H 05/08/24 08:08 Pulse Ox 98 05/08/24 08:08 O2 Del Method Room Air 05/08/24 08:08 BMI result Body Mass Index 27.9 Discharge Plan Discharge Patient Disposition: Home, Self-Care Referrals: Kanika Sánchez MD [Primary Care Provider] - 1 Week Discharge Medications: New oxycodone 5 mg tablet 5 mg PO Q6H PRN (Reason: severe pain (scale score 7-10)) Qty: 30 0RF Rx Instructions: Partial Fill upon patient request. Continued cyclosporine 0.05 % dropperette 1 drp ophthalmic (eye) BID meclizine 25 mg tablet 25 mg PO TID PRN (Reason: Dizziness) Discharge Orders: Discharge Order (Routine); Ordered 05/08/24 Ordered By: Jimenez Black Diet: Advance to usual diet Activity on Discharge: As tolerated Activity Restrictions/Additional Instructions: After your spinal surgery we ask you to observe the following restrictions/guidelines: Activity: It is normal to feel some discomfort as you increase your activity, but that will improve with time. We ask you avoid heavy lifting or acitivities that cause pain. As a general rule, 8lbs is a safe limit for lifting right after surgery. Walk as much as you feel comfortable but not to exhaustion. You will feel extra tired the first few days after surgery. Stay well hydrated. It is OK to walk up and down stairs You may return to driving when you are off narcotics (such as vicodin, oxycodone, dilaudid, etc), and you are back to normal functional capacity. If you have any concerns please check with office before driving. Return to work is specific to each patient and each surgery, so please speak with your doctor/PA at first follow up. Please bring paperwork such as FMLA at that time if you need it filled out. Medications: We will give you a short supply of narcotics after surgery (usually one weeks worth). If you need more please call the office but do not use more than prescribed. You will need to give our office 48 hours notice if you need narcotics refilled and we do not fill narcotics on weekends or evenings. If you are on a narcotic, it is a good idea to take a stool softener such as colace or senna to avoid constipation If you take blood thinner such as aspirin, Plavix, Coumadin, Effient, Eliquis etc for conditions such as Afib, DVT, Pulmonary embolus, coronary disease, stents etc please speak with your surgeon about specific details as to when you can resume these medications. You can resume NSAIDs on post op day 1 (eg: Motrin, Naproxen, etc). Follow up: Please call the office, , after surgery to arrange a 3 week follow up for wound check. Wound Care: You may remove your dressing on the first day after surgery. ?You may ?leave open to air. Please do not remove the steri strips underneath. they will fall off on their own in one week. IT IS NORMAL FOR THE WOUND TO OOZE OR BE BLOODY FOR A FEW DAYS AFTER SURGERY. ?IF THIS HAPPENS JUST PLACE NEW DRESSING OVER IT TO AVOID STAINING CLOTHES. You may shower on post op day # 1 We ask that you do not let the water soak the wound. If it does get wet, just towel dry lightly. Please do not scrub your incision or place any type of chemical/ointment on the wound. No tub baths, pools or jacuzzis for one month. If you have any leaking or redness from your wound, or fevers, please call the office. Print Language: Korean
[2024-05-08] MEDS: HYDROmorphone HCl 0.5 MG/0.5 ML SYRINGE 0.25 MG IVPUSH ×2 (10:38→10:43)
== END 2024-05-08 12:10 | disposition home or self-care (01) ==
PROVIDERS: PCP Family Medicine; Visit Provider Neurological Surgery
PROC: (CPT 63047; principal; 2024-05-08 09:30)
DX: M48.061 Spinal stenosis, lumbar region without neurogenic claudication (principal); D64.9 Anemia, unspecified; R73.03 Prediabetes; M79.7 Fibromyalgia; H81.10 Benign paroxysmal vertigo, unspecified ear; H90.3 Sensorineural hearing loss, bilateral; F41.1 Generalized anxiety disorder; I83.93 Asymptomatic varicose veins of bilateral lower extremities; Z79.899 Other long term (current) drug therapy; Z88.5 Allergy status to narcotic agent; Z91.041 Radiographic dye allergy status; Z88.8 Allergy status to other drugs, medicaments and biological substances; Z98.890 Other specified postprocedural states; Z87.891 Personal history of nicotine dependence
CPT/HCPCS: 63047; J0131; J0690; J1100; J1170; J1885; J2250; J2371; J2405; J2704; J3010

== ENCOUNTER → 2024-05-08 07:52 | Outpatient (BNV) | payer OTHER, SELFPAY | PROVIDERS: PCP Family Medicine; Visit Provider Neurological Surgery | DX: M48.061 Spinal stenosis, lumbar region without neurogenic claudication (principal) | CPT/HCPCS: 63047; 99499 ==

== ENCOUNTER 2024-05-29 11:18 | Outpatient (AMB) | payer OTHER, SELFPAY ==
--- NOTE | 2024-05-29 11:19 | HO.SPINEOV ---
Intake Visit Reasons: 1st post op Intake Note: Ms. Mcmahon is here today for her 1st post-op visit. Production Wood Craftsman Required: No Allergies Iodinated Contrast Media [IV Contrast Dye] Allergy (Severe, Verified 05/08/24 08:02) Anaphylaxis iodine Allergy (Severe, Verified 05/08/24 08:02) Anaphylaxis morphine [MORPHINE] Allergy (Severe, Verified 05/08/24 08:02) HALLUCINATIONS cyclobenzaprine [From Flexeril] Allergy (Intermediate, Verified 05/08/24 08:02) Gastrointestinal Upset oxycodone [OXYCODONE] Adverse Reaction (Intermediate, Verified 05/08/24 08:02) causes confusion but no real allergy Assessment & Plan Assessment & Plan (1) History of lumbar laminectomy for spinal cord decompression: Code(s): Z98.890 - Other specified postprocedural states Category: Medical Plan Felipa comes in today for her first postoperative appointment after having a lumbar decompression completed by our service. She reports that she has been doing very well since the surgery in his overall satisfied with the outcome. Unfortunately she still has some pains in her left lower extremity which he feels like are reducing her ability to move as freely as she may without the pain. When describing that she runs her hand over her left hip and near her left knee. She has not taken any medications since her surgery as she is afraid of the tramadol that we prescribed. She was informed by postop nurse that tramadol is very similar to morphine which gave her hallucinations in the past. No new neurological deficits. The patient is able to ambulate well and rises from seated position without difficulty. Her posterior incision site is closed and well healing. I sent in a prescription for low dose (5 mg) baclofen for the patient to take up to 3 times daily alongside 500 mg Tylenol q.i.d. as she did ask for something for pain relief that was not related to opiates in any way. She understands that although it is not a narcotic she can still not drive on baclofen. Hopefully this will help give her some postoperative inflammation relief. I would like to see her back in 6 weeks to evaluate her continued progress. Jimenez Serrano MD,PhD [facility] Medications: New baclofen 5 mg PO TID 21 tabs 0RF acetaminophen 500 mg PO Q6H PRN 30 tabs 0RF mild pain (scale score 1-4) Coding Level of Care Code Global (04318) Diagnoses History of lumbar laminectomy for spinal cord decompression Z98.890
== END 2024-05-29 11:40 | disposition home or self-care (01) ==
PROVIDERS: PCP Family Medicine; Visit Provider Physician Assistant
DX: Z98.890 Other specified postprocedural states (principal)
CPT/HCPCS: 99024

== ENCOUNTER → 2024-05-29 11:18 | Outpatient (BNVA) | payer OTHER, SELFPAY | PROVIDERS: PCP Family Medicine; Visit Provider Physician Assistant | DX: Z48.89 Encounter for other specified surgical aftercare (principal); Z98.890 Other specified postprocedural states | CPT/HCPCS: 99212 ==

== ENCOUNTER 2024-06-19 09:14 | Outpatient (REF) | payer OTHER, SELFPAY ==
--- NOTE | ~2024-06-19 | XR_ITS ---
EXAMINATION: XR LUMBOSACRAL SPINE CLINICAL INFORMATION: M54.50 - Low back pain, unspecified COMPARISON: -No prior. Correlation made with CT abdomen and pelvis 09/16/2021. TECHNIQUE: 5 views of the lumbar spine, inclusive of flexion and extension views, were obtained. FINDINGS: No fracture, compression deformity, or focal bony abnormalities. There is no significant scoliosis. There is mild straightening of the normal lordosis. There is a 3 mm likely degenerative anterolisthesis L4 on L5. This remains static in flexion and extension. There is no evidence of instability on flexion and extension views. There is mild to moderate multilevel disc degeneration most significant at L1-2 and L2-3. Degenerative facet changes present most significant at L4-S1. Sacrum intact. SI joints demonstrate mild degenerative arthritis. Soft tissues demonstrate vascular calcifications. XR/XR lumbar spine 4V min IMPRESSION: 1. No acute findings of the lumbar spine. 2. No evidence of instability on flexion and extension views. 3. Mild to moderate lumbar spondylosis. Electronically signed by: Victor Hugo Mcadams MD 08/29/2024 03:12 PM YANG
== END 2024-06-19 09:15 | disposition home or self-care (01) ==
LOC: HO.XRAY 09:14
PROVIDERS: PCP Family Medicine; Visit Provider Physician Assistant
DX: M54.50 Low back pain, unspecified (principal)
CPT/HCPCS: 72110

== ENCOUNTER → 2024-06-19 09:18 | Outpatient (BNV) | payer OTHER, SELFPAY | PROVIDERS: PCP Family Medicine; Visit Provider Radiology Diagnostic Radiology | DX: M54.50 Low back pain, unspecified (principal) | CPT/HCPCS: 72110 ==

== ENCOUNTER 2024-07-11 13:16 | Outpatient (AMB) | payer OTHER, SELFPAY ==
--- NOTE | 2024-07-11 13:27 | HO.SPINEOV ---
Intake Visit Reasons: 2nd post op Intake Note: Ms. Mcmahon is here for her 2nd post-op Addiction Therapist Required: No Allergies Iodinated Contrast Media [IV Contrast Dye] Allergy (Severe, Verified 05/08/24 08:02) Anaphylaxis iodine Allergy (Severe, Verified 05/08/24 08:02) Anaphylaxis morphine [MORPHINE] Allergy (Severe, Verified 05/08/24 08:02) HALLUCINATIONS cyclobenzaprine [From Flexeril] Allergy (Intermediate, Verified 05/08/24 08:02) Gastrointestinal Upset oxycodone [OXYCODONE] Adverse Reaction (Intermediate, Verified 05/08/24 08:02) causes confusion but no real allergy Assessment & Plan Assessment & Plan (1) History of lumbar laminectomy for spinal cord decompression: Code(s): Z98.890 - Other specified postprocedural states Category: Medical Plan Dear colleague, On 07/11/2024 I saw for final postoperative visit Felipa Mcmahon. She underwent an L4-5 lumbar decompression for neurogenic claudication that resolved her symptoms. Her main complaint now is an pain on the left buttock into her groin to the ventral side of her thigh. The pain comes intermittently. Chiropractic treatment release her symptoms. On exam, hip rotation is painful. SI joint tests are negative. I told the patient that I think those symptoms are coming from her left hip and I recommended referral to Orthopedic surgery. She 1st wants to continue with chiropractic treatment. Overall she is very satisfied with the surgical outcome. Thank you for allowing me take care of this patient. Vinay Serrano MD, PhD Sp[facility] Trained Neurosurgeon Director, [facility] Coding Level of Care Code Global (67383) Diagnoses History of lumbar laminectomy for spinal cord decompression Z98.890
== END 2024-07-11 14:18 | disposition home or self-care (01) ==
PROVIDERS: PCP Family Medicine; Visit Provider Neurological Surgery
DX: Z98.890 Other specified postprocedural states (principal)
CPT/HCPCS: 99024

== ENCOUNTER → 2024-07-11 13:16 | Outpatient (BNVA) | payer OTHER, SELFPAY | PROVIDERS: PCP Family Medicine; Visit Provider Neurological Surgery | DX: Z98.890 Other specified postprocedural states (principal) | CPT/HCPCS: 99212 ==

== ENCOUNTER 2024-08-08 08:32 | Day surgery (SDC) | payer OTHER, SELFPAY ==
[2024-08-06 14:00] VITALS: BMI 27.3
--- NOTE | 2024-08-07 09:30 | P.CONAN_ITS ---
Documented by User: Sivan Cloud NP 08/07/24 09:31 HPI - Anesthesia Eval Consult details Narrative: 74yo F for Colonoscopy PMFSH Active Problems Active Problems: All Active Problems Lumbago (Acute) History of lumbar laminectomy for spinal cord decompression (Acute) Degenerative lumbar spinal stenosis (Acute) Incisional hernia (Acute) Past Medical History Medical History (Updated 06/16/24 @ 15:37 by MULU Petty) Fibromyalgia Varicose vein of leg Pre-diabetes GERD (gastroesophageal reflux disease) Steatosis of liver IBS (irritable bowel syndrome) Vertigo Renal cyst Anxiety Depression Bilateral low back pain with bilateral sciatica Lumbar disc herniation Family History Family History Mother Cutaneous lymphoma Family history of problems with anesthesia: No Surgical History Surgical History (Updated 08/06/24 @ 13:57 by Nazanin Padilla RN) Hx of lumbar discectomy Hx of foot surgery History of esophagogastroduodenoscopy (EGD) Hx of cataract extraction Hx of colonoscopy History of abdominoplasty History of bilateral breast reduction surgery History of cholecystectomy History of Problems with Anesthesia: No Social History Social History Household Members Other:: grandson-minor Are you a primary wound care nurse to a significant other at home: Yes (grandson- minor) Do you presently have visiting nurse or other home services: No Alcohol intake: never Patient Tobacco Use Status: Former Tobacco user Tobacco use type: Cigarette Use of substances other than those prescribed or required for medical reasons: No Are you DNR?: No Advance Directives: No Advance Directives Information Provided: Yes Advance Directives Date on File: 04/24/24 Meds Allergies Allergy/AdvReac Type Severity Reaction Status Date / Time Iodinated Contrast Media Allergy Severe Anaphylaxis Verified 08/08/24 11:14 [IV Contrast Dye] iodine Allergy Severe Anaphylaxis Verified 08/08/24 11:14 morphine [MORPHINE] Allergy Severe HALLUCINATI Verified 08/08/24 11:14 ONS cyclobenzaprine Allergy Intermediate Gastrointestinal Verified 08/08/24 11:14 [From Flexeril] Upset oxycodone [OXYCODONE] AdvReac Intermediate causes Verified 08/08/24 11:14 confusion but no real allergy Home Medications ?Medication ?Instructions ?Recorded ?Confirmed ?Last Taken ?Type multivitamin 1 tab PO DAILY 08/06/24 08/08/24 Unknown History Exam Height,Weight and Vital Signs: Height 5 ft 3 in Weight 69.853 kg Assessment and Plan Assessment Anesthesia Assessment: Chart Reviewed Final Anesthetic Review Family History of Problems with Anesthesia: No History of Problems with Anesthesia: No Documented by User: Shakila Colvin MD 08/08/24 11:21 PMFSH Past Medical History Medical History (Updated 06/16/24 @ 15:37 by MULU Petty) Fibromyalgia Varicose vein of leg Pre-diabetes GERD (gastroesophageal reflux disease) Steatosis of liver IBS (irritable bowel syndrome) Vertigo Renal cyst Anxiety Depression Bilateral low back pain with bilateral sciatica Lumbar disc herniation Family History Family History Mother Cutaneous lymphoma Surgical History Surgical History (Updated 08/06/24 @ 13:57 by Nazanin Padilla RN) Hx of lumbar discectomy Hx of foot surgery History of esophagogastroduodenoscopy (EGD) Hx of cataract extraction Hx of colonoscopy History of abdominoplasty History of bilateral breast reduction surgery History of cholecystectomy Social History Social History Household Members Other:: grandson-minor Are you a primary wound care nurse to a significant other at home: Yes (grandson- minor) Do you presently have visiting nurse or other home services: No Alcohol intake: never Patient Tobacco Use Status: Former Tobacco user Tobacco use type: Cigarette Use of substances other than those prescribed or required for medical reasons: No Are you DNR?: No Advance Directives: No Advance Directives Information Provided: Yes Advance Directives Date on File: 04/24/24 Meds Allergies Allergy/AdvReac Type Severity Reaction Status Date / Time Iodinated Contrast Media Allergy Severe Anaphylaxis Verified 08/08/24 11:14 [IV Contrast Dye] iodine Allergy Severe Anaphylaxis Verified 08/08/24 11:14 morphine [MORPHINE] Allergy Severe HALLUCINATI Verified 08/08/24 11:14 ONS cyclobenzaprine Allergy Intermediate Gastrointestinal Verified 08/08/24 11:14 [From Flexeril] Upset oxycodone [OXYCODONE] AdvReac Intermediate causes Verified 08/08/24 11:14 confusion but no real allergy Home Medications ?Medication ?Instructions ?Recorded ?Confirmed ?Last Taken ?Type multivitamin 1 tab PO DAILY 08/06/24 08/08/24 Unknown History Exam Airway Mallampati Class: II TM Dist: >3cm Neck ROM: Full Assessment and Plan Assessment Anesthesia Assessment: Anesthesia Plan Discussed Final Anesthetic Review NPO: Yes ASA Class: I Final Preanesthetic Review: No Changes in Pt Med Stat, Meds/Allgs Chart Reviewed , Consent Obtained/Reviewed and Anes Risks/Benef Reviewed Patient Risk: Low Procedure Risk: Low Anesthetic Plan Anesthetic Plan: TIVA Disposition: Standard PACU
[2024-08-08 10:56] VITALS: BP 167/77; PULSE 83; RESP 16; TEMP 36.1; O2SAT 98; BMI 27.6
[2024-08-08] MEDS: Lactated Ringers 1,000 ML 100 ML IVCONT (11:14)
--- NOTE | 2024-08-08 12:11 | PM.OP ---
Brief Operative Note Date of Service: 08/08/24 Pre-op diagnosis: Screening Post-op diagnosis: other (Diverticulosis) Procedure: Colonoscopy to the cecum and TI Surgeon: Andre Mayer MD Anesthesia: MAC Was an Print Shop Assistant used for this Procedure?: No Estimated blood loss (mL): 0 Pathology: none sent Condition: stable Disposition: PACU
[2024-08-08 12:14] VITALS: BP 130/76; PULSE 97; RESP 15; TEMP 36.6; O2SAT 97
[2024-08-08 12:28] VITALS: BP 147/70; PULSE 84; RESP 15; TEMP 36.1; O2SAT 97
--- NOTE | 2024-08-08 22:53 | OP_ITS ---
DATE OF SERVICE: 08/08/2024 SURGEON: Andre Mayer MD INDICATIONS: The patient presents for evaluation of personal history of colon polyps and colorectal cancer screening. Full consent has been obtained from her for this, including risks of bleeding and perforation. PREOPERATIVE DIAGNOSIS: POSTOPERATIVE DIAGNOSIS: PROCEDURE PERFORMED: Colonoscopy to cecum and terminal ileum. ESTIMATED BLOOD LOSS: COMPLICATIONS: ANESTHESIA: Monitored anesthesia care. ASSISTANTS: SPECIMENS: PREOPERATIVE DIAGNOSES: Colorectal cancer screening and personal history of colon polyps. POSTOPERATIVE DIAGNOSES: Colorectal cancer screening and personal history of colon polyps, diverticulosis, and internal hemorrhoids. DESCRIPTION OF PROCEDURE: The patient was placed in left lateral decubitus position. The digital rectal exam revealed no abnormalities. The Olympus video pediatric colonoscope was entered into the rectum and advanced to the cecum with the assistance of abdominal pressure. Once in the cecum, I did identify normal-appearing cecal pouch with appendiceal orifice and a normal-appearing ileocecal valve. The terminal ileum was cannulated and appeared normal. The scope was withdrawn back in the colon. The entire cecum and ileocecal valve appeared normal. The scope was slowly withdrawn assessing all mucosal surfaces carefully. Preparation was excellent. I did not visualize any sign of polyps, colitis, nor angiodysplasia. There was a mild amount of diverticulosis in the sigmoid colon. Of note, I did visualize some scarring in the area of the descending and sigmoid colon, which may have been in relation to her previous surgery for rectocele and enterocele. In the rectum, scope was retroflexed visualizing some small internal hemorrhoids, but no other pathology. The rectal mucosa appeared normal. The scope was straightened and withdrawn from the patient. She tolerated the procedure well and was returned to the recovery area in stable condition. IMPRESSION: 1. Diverticulosis. 2. Internal hemorrhoids. PLAN: Given today's negative exam and her age, I do not think she would need any further screening colonoscopies. She will otherwise see me on a p.r.n. basis. Andre Mayer MD RMAbelardo/YASIR / [id number]
== END 2024-08-08 13:20 | disposition home or self-care (01) ==
PROVIDERS: PCP Family Medicine; Visit Provider Internal Medicine
PROC: 0DJD8ZZ Inspection of Lower Intestinal Tract, Via Natural or Artificial Opening Endoscopic (ICD-10-PCS; CPT 45378; principal; 2024-08-08 10:40)
DX: Z12.11 Encounter for screening for malignant neoplasm of colon (principal); Z86.0101 Personal history of adenomatous and serrated colon polyps; K57.30 Diverticulosis of large intestine without perforation or abscess without bleeding; K64.8 Other hemorrhoids; K21.9 Gastro-esophageal reflux disease without esophagitis; F41.8 Other specified anxiety disorders; M51.26 Other intervertebral disc displacement, lumbar region; Z79.899 Other long term (current) drug therapy; Z98.890 Other specified postprocedural states
CPT/HCPCS: G0105

== ENCOUNTER 2025-02-06 13:55 | Outpatient (REF) | payer OTHER, SELFPAY ==
--- NOTE | ~2025-02-06 | CT_ITS ---
EXAMINATION: CT SINUS WITHOUT CONTRAST CLINICAL INFORMATION: Polyploid nasal cavity. COMPARISON: None available. TECHNIQUE: Contiguous axial images through the paranasal sinuses using 2 mm collimation with bone and soft tissue algorithm. Sagittal and coronal reformatted images acquired. DLP: [address] examination was performed using dose optimization techniques as appropriate, variously including the following: *Automated exposure control *Adjustment of mA and/or kV according to patient size (this includes techniques or standardized protocols for targeted exams where dose is matched to indication/reason for exam; i.e. extremities or head) *Use of iterative reconstruction technique FINDINGS: Paranasal sinuses are well pneumatized and aerated. There is a 5 mm soft tissue attenuation in the right nasal vestibule. Nasal cavities patent. There is harpreet bullosa left middle turbinate. The ostiomeatal units are patent. There is incomplete fusion of the ethmoid artery not. Cribriform plate and fovea ethmoidalis are intact. The orbital fissures orbital apices are intact. There is vidian canal type III, bilaterally. There is no pneumatization of the anterior clinoids. No gross mucosal thickening or air-fluid levels in the paranasal sinuses. The intrasinus septum, saphenous sinus attached in the posterior midline wall of the sphenoid away from the carotic canals. The foramen ovale and foramen rotundum are intact. S-shaped nasal septum configuration. No spurring in the nasal septum. Tympanic cavities and mastoid air cells are aerated. No mass or fluid collections in the intraconal or extraconal compartments of the orbits. CT/CT sinus wo IV con IMPRESSION: 5 mm soft tissue nodule in the anterior right nasal vestibule. Electronically signed by: Ivan Mckee MD 02/06/2025 03:56 PM EDT
--- OUTSIDE RECORDS SUMMARY | 2025-02-06 13:58 | XMS_ITS | Data Portability ---
Author Organization [facility] [employer] Address [address] [place] [address] Care Team Providers Care Middle School Science Teacher Name Role Phone TEE MADDEN Referring Provider Unavailable TEE MADDEN Primary Care Provider Assessment Encounter Date Assessment Date Assessment LastModified by Organization Details LastModified Time 06/20/2023 06/20/2023 IMPRESSION: --Possible L5 radiculopathy contributing to right-sided pain starting 5 years ago which radiates from buttock down lower extremity to the top of the foot with straight leg raise reproducing part of this symptomatology. --Fibromyalgia relating to other parts of pain symptomatology. Straight leg raise reproduces burning pain in her right lateral leg similar to her presenting symptomatology. The rest of the neurological exam is normal. Muscular exam reveals tenderness in multiple classical fibromyalgia tender points and in addition in proximal anterolateral thigh (exquisite tenderness) where she notes the center of her left lower extremity pain. These data comprise evidence for fibromyalgia relating to symptomatology. We discussed the situation. Right lower extremity L5 radiculopathy is suggested but not definitively diagnosable by the single sign on neurological exam? s traight leg raise. EMG nerve conduction studies are the best next step for elucidation. She is wary of EMG & nerve conduction studies. A massage therapist suggested it but at the same time said that it was painful. Another friend said that it was not painful at all. We discussed that people varied. There is increased chance that she will find it painful given her baseline fibromyalgia diagnosis. She will be in charge in terms of decisions for stopping the testing procedure should it be too painful, should she decide to go ahead with EMG & nerve conduction studies. She says that she would like to go ahead. PLAN Felipa Mcmahon June 20, 2023 EMG & nerve conduction studies of right lower extremity only, with contralateral assessment only for comparison of any abnormal study results. Only the smallest needle will be used during needle EMG studies in the context of fibromyalgia. Follow-up afterwards. zak Not available 06/20/2023 12:45:14 07/11/2023 07/11/2023 IMPRESSION: --Possible L5 radiculopathy contributing to right-sided pain starting 5 years ago which radiates from buttock down lower extremity to the top of the foot with straight leg raise reproducing part of this symptomatology. --Fibromyalgia relating to other parts of pain symptomatology. Straight leg raise reproduces burning pain in her right lateral leg similar to her presenting symptomatology. The rest of the neurological exam is normal. Muscular exam reveals tenderness in multiple classical fibromyalgia tender points and in addition in proximal anterolateral thigh (exquisite tenderness) where she notes the center of her left lower extremity pain. These data comprise evidence for fibromyalgia relating to symptomatology. DATA REVIEW ? NEUROPHYSIOLOGY: EMG & nerve conduction studies of right lower extremity July 04, 2023, [facility], by my evaluation: This is a normal study. Nerve conduction studies and needle EMG studies are done of the right lower extremity. All studies are normal. There is no electrodiagnostic evidence of right lower extremity lumbosacral radiculopathy, plexopathy or right lower extremity peripheral neuropathy. We discussed that I find no objective evidence that there is a damaged right-sided nerve root coming from her spine related to her right lower extremity pain, damage right-sided nerve within her right lower extremity to explain any part of her right lower extremity pain. This makes much more likely that the nervous system in this region is intact and is reporting pain from surrounding tissue? a nd/or that the pain relates in someway to fibromyalgia. She mentions that she has some herniated disks in her lower back. I respond that this could indeed cause pain that mimics in part the pain pattern from a damaged nerve root. Specialists who treat such a condition are usually perioperative educator who may work in sports medicine, nonsurgical orthopedics for pain management departments. In any case, I do not have a management direction to offer from the neurological perspective. We agree that she will follow-up as needed for new issues that may relate to neurological conditions. PARISH Mcmahon July 11, 2023 We agree that she will follow-up as needed for new issues that may relate to neurological conditions. zak Not available 07/11/2023 10:28:43 Plan of Treatment Reminders Order Date Submit Date Provider Last Modified By Organization Details Last Modified Time Details Appointments None record ed. Lab None record ed. Referral None record ed. Procedures None record ed. Surgeries None record ed. Imaging None record ed. Medication Orders None record ed. Patient TargetsNo targets recorded. Patient Instructions Encounter Date Encounter Id Patient Instructions Last Modified By Organization Details Last Modified Time 06/20/2023 [id number] Discussion acros s issues of diagnoses and management and same day associated chart review and management greater than 50% greater than 60 minutes zak Not available 06/20/2023 12:45:32 07/11/2023 [id number] PREVIOUS DISCUSSIONS June 20, 2023 initial neurology consultation We discussed the situation. Right lower extremity L5 radiculopathy is suggested but not definitively diagnosable by the single sign on neurological exam? s traight leg raise. EMG nerve conduction studies are the best next step for elucidation. She is wary of EMG & nerve conduction studies. A massage therapist suggested it but at the same time said that it was painful. Another friend said that it was not painful at all. We discussed that people varied. There is increased chance that she will find it painful given her baseline fibromyalgia diagnosis. She will be in charge in terms of decisions for stopping the testing procedure should it be too painful, should she decide to go ahead with EMG & nerve conduction studies. She says that she would like to go ahead. Discussion across issues of diagnoses and management and same day associated chart review and management greater than 50% greater than 30 minutes zak Not available 07/11/2023 10:17:36 Reason for Referral None Reported. Results Created Date Observation Date Name Description Value Unit Range Abnormal Flag Note LastModifiedBy Organization Detail LastModifiedTime 06/20/20 23 06/12/2023 opal villa/suly medina tic resul t No observ ation record ed. [facility] [address] , [place], [address], 06/20/2023 11:43:32 Result Notes None recorded. Procedures Surgical History Date Name Laterality Status Provider Name and Address Organization Details Recorded Time 07/11/2023 DATA REVIEW completed Thaddeus Cantor MD [address] [facility], [address], [facility] 07/11/2023 10:15:45 07/04/2023 EMG & NCS completed Thaddeus Cantor MD [address] [facility] [place], [address], [facility] 07/04/2023 17:05:57 Imaging Results Imaging Date Name Status LastModified by Organiz ation Details LastModified Time 06/12/2023 imaging/diag nostic result completed [facility] [address] [place], [address], 06/20/2023 11:43:32 Procedure Notes None recorded. Medical Equipment None Reported. Allergies Allergen ID Allergen Name Allergen Category Reaction Reaction Severity Criticality Documentation Date Start Date Code Code System Note Provider Name and Address Organization Details Recorded Time 3120 iodine medicatio n Not available Not available Not available 06/20/2023 5933 RxNorm [place] [facility] 3 11:29:06 3121 oxycodone medicatio n Not available Not available Not available 06/20/2023 7804 RxNorm Cathi [facility] 3 11:29:36 Medications Name Sig Start Date Stop Date Status Note LastModified by Organization Details LastModified Time buspirone 5 mg tablet TAKE ONE TABLET BY MOUTH TWICE A DAY active Not Available Not Available No t Available amoxicillin 875 mg-potassium clavulanate 125 mg tablet TAKE 1 TABLET BY MOUTH EVERY 12 HOURS FOR 10 DAYS active Not Available Not Available No t Available Xiidra 5 % eye drops in a dropperette INSTILL 1 DROP INTO EACH EYE TWO TIMES A DAY active Not Available Not Available No t Available Flowflex COVID-19 Antigen Home Test kit USE DIRECTED active Not Available Not Available No t Available Vitals Date Recorded Body height Body mass index (BMI) Body weight Respiratory rate Provider Name and Address Organization Details Last Updated DateTime 06/20/2023 160.02 cm 29.6 kg/m2 50728.93 g 12 /min [facility] 06/20/2023 11:28:54 Social History Question Answer Notes LastModified by Organizat ion Details LastModified Time Tobacco Smoking Status Former Smoker Cathi Bejefferson [facility] 06/20/2023 11:42:10 What Is Your Level Of Alcohol Consumption? None Information not available 06/20/2023 What Is Your Level Of Caffeine Consumption? Moderate 2 Information not available 06/20/2023 What Is The Highest Grade Or Level Of School You Have Completed Or The Highest Degree You Have Received? NB13857-2 Information not available 06/20/2023 What Is Your Relationship Status? Information not available 06/20/2023 Sex: Unknown Functional Status None recorded. Mental Status None recorded. Family History Relationship Description Onset Age of this Age Resolved Age Notes LastModified by Organization Details LastModified Time Sister Dementia [email or web address] Not avail able 06/20/2023 11:39:49 Son Type 1 diabetes mellitus [email or web address] Not available 11:40:14 Unspecified Relation Headache [email or web address] Not available 11:40:25 Unspecified Relation Heart disease [email or web address] Not available 11:40:34 Unspecified Relation Disorder of thyroid gland vworthington Not available 11:40:53 Medical History Condition Response Heartburn, acid reflux, GERD Y Vitamin B12 deficiency Y Depression Y Gynecological HistoryNo gynecological history recorded. 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 Lumbosacra l radiculopathy 8362006 M54.16 [id number] Thaddeus Cantor MD [facility] [address] [place] [address] [place] [address] 07/11/2023 09:45:49 07/11/2023 10:37:34 Lumbar radiculopathy 730074545 M54.16 Health Concerns Section Related Observation LastModified by Organization Detai ls LastModified Time None Recorded Concern Status LastModified by Organization Details LastModified Time None Recorded Advance Directives Directive None Recorded Payers Encounter Date Sequence Insurance Name Policy Number Policy Velazco Covered Member ID Velazco Member ID Guarantor Name 06/20/2023 1 [facility] ON OR AFTER 2022 - [facility] OPTIONS AND ONE CARE (MEDICARE REPLACEMENT/ADV ANTAGE - PPO) Felipa Mcmahon [id number] Felipa Mcmahon 07/04/2023 1 [facility] DOS ON OR AFTER 2022 - [facility] OPTIONS AND ONE CARE (MEDICARE REPLACEMENT/ADV ANTAGE - PPO) Felipa Lisandro [id number] Felipa Mcmhaon 07/11/2023 1 [facility] DOS ON OR AFTER 2022 - [facility] OPTIONS AND ONE CARE (MEDICARE REPLACEMENT/ADV ANTAGE - PPO) Felipa Mcmahon [id number] Felipa Mcmahon Notes Date Note Type Note Provider Name and Address Organization Details Recorded Time 06/20/2023 text/html She presents for assessment and management of 5 years of recently worsening right lower extremity pain extending from buttock distally; and 2 years of recently worsening left lower extremity pain extending from top of thigh distally. Past history includes fibromyalgia, per patient. She is unaccompanied.About 5 years ago, she began having pain in her right lower extremity. It was intermittent and mild at first but extended from her right buttock all the way down to the top of her foot.About 2 years ago, she began having pain in her left lower extremity. It was also mild at first but it was continuous from the start.~1 year ago, the pain worsened, becoming horrible in both lower extremities. Since then, it has slowly worsened in both lower extremities. 1 year ago, right lower extremity pain also became continuous except for in the foot where it has remained intermittent. Right lower extremity pain is sharp in the right buttock but burning in the right leg and top of foot. Left lower extremity pain is sharp in the left anterior thigh but burning in the left leg and bottom of left foot. 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 She recalls no injury or change in activity or trauma more generally 5 years ago with onset of right lower extremity pain, 2 years ago with onset of left lower extremity pain, or 1 year ago with precipitous worsening bilaterally of lower extremity pain. There has been no change in her general daily activities over this time span. Since 8 years ago, she has had / responsibility for a grandchild which keeps her very busy.She has no numbness or tingling in either lower extremity. She occasionally gets a vibrating sensation in the proximal anterolateral right thigh and groin region. She has no problem moving the toes, feet or legs. She has had no worsening of bowel or bladder function. Thaddeus Cantor MD [address] [place] [address], [phone], [facility] 06/20/2023 12:46:50 07/11/2023 text/html Neurology follow -up of 5 years of recently worsening right lower extremity pain extending from buttock distally; and 2 years of recently worsening left lower extremity pain extending from top of thigh distally. Past history includes fibromyalgia, per patient. She is unaccompanied.Since June 20, 2023 initial neurology consultation, she reports no significant change in presenting symptomatology. >>>>>>>>>>Presenting symptomatology June 20, 2023 reviewed:About 5 years ago, she began having pain in her right lower extremity. It was intermittent and mild at first but extended from her right buttock all the way down to the top of her foot.About 2 years ago, she began having pain in her left lower extremity. It was also mild at first but it was continuous from the start.~1 year ago, the pain worsened, becoming horrible in both lower extremities. Since then, it has slowly worsened in both lower extremities. 1 year ago, right lower extremity pain also became continuous except for in the foot where it has remained intermittent. Right lower extremity pain is sharp in the right buttock but burning in the right leg and top of foot. Left lower extremity pain is sharp in the left anterior thigh but burning in the left leg and bottom of left foot. She notes that she had a cortisone shot in the top of the left foot for Advis's neuroma in the past and since then she has had pain in the location of that cortisone shot.Pain does not vary with activity, with lifting or any other activity more generally. She recalls no injury or change in activity or trauma more generally 5 years ago with onset of right lower extremity pain, 2 years ago with onset of left lower extremity pain, or 1 year ago with precipitous worsening bilaterally of lower extremity pain. There has been no change in her general daily activities over this time span. Since 8 years ago, she has had 24/ responsibility for a grandchild which keeps her very busy.She has no numbness or tingling in either lower extremity. She occasionally gets a vibrating sensation in the proximal anterolateral right thigh and groin region. She has no problem moving the toes, feet or legs. She has had no worsening of bowel or bladder function. Thaddeus Cantor MD [address] [place] [address] [place], [address], [facility] 07/11/2023 10:28:50 OBGyn Episode No OBEpisode recorded.
--- OUTSIDE RECORDS SUMMARY | 2025-02-06 13:58 | XMS_ITS ---
Author Organization [facility] Address [address] [place] [address] Care Team Providers Care Director Mobile Name Role Phone TEE MADDEN Primary Care Provider Andre Olvera [phone] REASON FOR VISIT urgency and leakage with gas Encounters Encounter Location Date Provider Diagnosis [facility] [address] [place] [address] 01/02/2024 Andre Maeyr Plan Of Treatment No Information Progress Notes * YULISSA MORAB:1950 (74 yo F)Acc No.[id number]:01/02/2024 Progress Notes Patient:?ROVERTO MORA Provider:?Andre Mayer MD :1950???Age:73 Y???Sex:Female D ate:01/02/2024 Address:[address] [place], [place] [id number] Pcp:TEE MADDEN Subjective: * Chief Complaints: * ???1. Urgency and leakage wi th gas. * Medical History:? Objective: * Vitals:? Assessment: Plan: * Treatment: * * The named appointment provid er may or may not be the originator of this progress note, and it is not deemed complete until electronically signed by the appointment provider. Sign off status: Pending * Provider:?Andre Mayer MD Date:? 024 Generated for Christiano villa/Hemalatha/Ranjithsmitting on:?02/06/2025 01:58 PM EDT
--- OUTSIDE RECORDS SUMMARY | 2025-02-06 13:58 | XMS_ITS | Encounter Summary ---
Author Organization [employer] Address [address] [facility] [address] [place] [address] Care Team Providers Care Creative Specialist Name Role Phone Name, Amaury DEVINE Primary Care Provider [phone] Encounter Details Date Type Department Care Team ([facility] st Contact Info) Description 11/02/2022 Telephone [facility] [address] [place], [place] [phone] Name, MD Amaury [address] [place], [place] [phone] Social History Tobacco Use Types Packs/Day Years Used Date Smoking Tobacco: Never Smokeless Tobacco: Never Depression Answer Date Recorded Patient Health Questionnaire-2 Score 0 10/18/2022 Comments Unknown Sex and Gender Information Value Date Recorded Sex Assigned at Female 07/31/2022 10:24 AM EDT Legal Sex Female 10:24 AM EDT Gender Identity Female 07/31/2022 10:24 AM EDT Sexual Orientation Straight 07/31/2022 10 :24 AM EDT COVID-19 Exposure Response Date Recorded In the last 10 days, have yo u been in contact with someone who was confirmed or suspected to have Coronavirus/COVID-19? No / Unsure 10/18/2022 11:10 AM EST documented as of this encounter Plan of Treatment Not on file documented as of this encounter Visit Diagnoses Not on filedocumented in this encounter Care Teams Creative Specialist Relationship Specialty Start Date End Date Name, MD Amaury [address] [place] [id number] PCP - General Family Medicine 04/18/21 01/29/24 documented as of this encounter
--- OUTSIDE RECORDS SUMMARY | 2025-02-06 13:58 | XMS_ITS ---
Author Organization [facility] Address [address] [place] [address] Care Team Providers Care Venetian Blind Cleaner And Repairer Name Role Phone TEE MADDEN Primary Care Provider Andre Olvera [phone] REASON FOR VISIT screening,hx polyps Problems Problem Type SNOMED Code ICD Code Onset Dates Problem Status W/U Status Risk Notes Problem Diverticular disease of colon (159344745) Diverticulosis of large intestine without perforation or abscess without bleeding (K57.30) Active confirmed Encounters Encounter Location Date Provider Diagnosis [facility] Outpatient [address] [place] [phone] 08/08/2024 Andre Mayer Colon cancer scree jaimee Z12.11 ; Personal history of colonic polyps Z86.0100 ; Diverticulosis of large intestine without perforation or abscess without bleeding K57.30 and Other hemorrhoids K64.8 Assessments Encounter Date Diagnosis (ICD Code) Assessment Notes Treatment Notes Treatment Clinical Notes Section Notes 08/08/2024 Colon cancer screening (ICD-10 - Z12.11) 08/08/2024 Personal history of colonic polyps (ICD-10 - Z86.0100) 08/08/2024 Diverticulosis of large intestine without perforation or abscess without bleeding (ICD-10 - K57.30) 08/08/2024 Other hemorrhoids (ICD-10 - K64.8) Plan Of Treatment No Information Progress Notes * DOUGLAS MORA:1950 (74 yo F)Acc No.[id number]:08/08/2024 COLON WITH MAC Patient:?ROVERTO MORA Provider:?Andre Mayer MD :1950???Age:74 Y???Sex:Female D ate:08/08/2024 Address:[address] [place], [place] [phone] Pcp:TEE MADDEN Subjective: * Chief Complaints: * ???1. Screening,hx polyps. * Medical History:? Objective: * Vitals:? Assessment: * Assessment: 1.?Colon cancer screening - Z12.11 (Primary)???2.?Personal history of colonic polyps - Z86.0100???3.?Diverticulosis of large intestine without perforation or abscess without bleeding - K57.30???4.?Other hemorrhoids - K64.8??? Plan: * Treatment: * Procedure Codes:?04047 DIAGN OSTIC COLONOSCOPY * * The named appointment provid er may or may not be the originator of this progress note, and it is not deemed complete until electronically signed by the appointment provider. Sign off status: Pending * Provider:?Andre Mayer MD Date:? 024 Generated for Christiano villa/Hemalatha/eTkinasmitting on:?02/06/2025 01:57 PM EDT
--- OUTSIDE RECORDS SUMMARY | 2025-02-06 13:58 | XMS_ITS | Encounter Summary ---
Author Organization [employer] Address [address] [facility] [address] [place] [address] Care Team Providers Care Electro Mechanical Technologist Name Role Phone Name, Amaury DEVINE Primary Care Provider [phone] Reason for Visit * Reason Onset Date Comments Appointment Request 02/02/2023 Encounter Details Date Type Department Care Team ([facility] st Contact Info) Description 02/02/2023 Telephone [facility] [address] [place], [place] [phone] Name, MD Amaury [address] [place], [place] [phone] Appointment Request Social History Tobacco Use Types Packs/Day Years Used Date Smoking Tobacco: Never Smokeless Tobacco: Never Depression Answer Date Recorded Patient Health Questionnaire-2 Score 0 10/18/2022 Comments Unknown Sex and Gender Information Value Date Recorded Sex Assigned at Female 07/31/2022 10:24 AM EDT Legal Sex Female 10:24 AM EDT Gender Identity Female 07/31/2022 10:24 AM EDT Sexual Orientation Straight 07/31/2022 10 :24 AM EDT documented as of this encounter Miscellaneous Notes * Telephone Encounter - Riki Castillo - 02/02/2023 3:28 PM EDT Tc from pt requesting an appt with provider. Pt was unclear in why appt was needed. Please contact pt at [phone] documented in this encounter Plan of Treatment Not on file documented as of this encounter Visit Diagnoses Not on filedocumented in this encounter Care Teams Electro Mechanical Technologist Relationship Specialty Start Date End Date Name, MD Amaury [address] [place] [address] PCP - General Family Medicine 04/18/21 01/29/24 documented as of this encounter
--- OUTSIDE RECORDS SUMMARY | 2025-02-06 13:58 | XMS_ITS | Patient Health Record ---
Author Organization [facility] Address [address] [place] [address] Care Team Providers Care Chemical Operations Specialist Name Role Phone MARYANNETEE Primary Care Provider Andre Olvera [phone] Allergies Allergen (clinical drug ingredient) Drug/Non Drug Allergy documented on EMR Reaction Allergy Type Onset Date Status oxycodone Oxycodone HCl Unknown Drug Allergy Act paul morphine Morphine Sulfate Unknown Drug Allergy Active Reason For Referral No Information Medications Medication SIG (Take, Route, Fr equency, Duration) Notes Start Date End Date Status Multivitamin & Mineral Active Immunizations Vaccine Route Administration Date Status Comme nts Influenza Unknown 02/04/2019 Refused Influenza Unknown 07/11/2019 Refused Social History Tobacco Use: Social History Observation Description Date Details (start date - stop date) Never Smoker NA - NA Tobacco Use/Smoking Question Answer Notes Patient is a nonsmoker Alcohol Screen Question Answer Notes Did you have a drink containing alcohol in the p ast year? No Points 0 Interpretation Negative Section Notes: Nonsmoker; no alcohol No milk--uses [place] milk Nonsmoker; no alcohol No milk--uses [place] milk Nonsmoker; no alcohol No milk--uses [place] milk Problems Problem Type SNOMED Code ICD Code Onset Dates Problem Status W/U Status Risk Notes Problem Colon cancer screening (472473403) Colon cancer screening (Z12.11) Active confirmed Problem 677980781 History of adenomatous polyp of colon (Z86.010) Active confirmed Problem Pre-procedure evaluation check (245435640) Encounter for other preprocedural examination (Z01.818) Active confirmed Problem Diverticulosis o f large intestine without perforation or abscess without bleeding (K57.30) Active confirmed Problem 024937001 Gastroesophageal reflux disease without esophagitis (K21.9) Active confirmed Problem 89991831 Rectal bleed (K62.5) Active confirmed Problem 12041196 Diarrhea, unspecified type (R19.7) Active confirmed Problem 48018939 Change in bowel function (R19.8) Active confirmed Vital Signs Blood pressure diastolic 00 mm Hg 04/08/2024 Height 63 in 04/08/2024 Blood pressure systolic 00 mm Hg 04/08/2024 Weight 154 lbs 04/08/2024 BMI 27.28 kg/m2 04/08/2024 Encounters Encounter Location Date Provider Diagnosis [facility] Outpatient [address] [place] [phone] 08/08/2024 Andre Mayer Colon cancer screeni ng Z12.11 ; Personal history of colonic polyps Z86.0100 ; Diverticulosis of large intestine without perforation or abscess without bleeding K57.30 and Other hemorrhoids K64.8 [facility] [address] [place] [address] 04/08/2024 Andre Mayer History of adenomato us polyp of colon Z86.010 ; Encounter for other preprocedural examination Z01.818 and Colon cancer screening Z12.11 Assessments Encounter Date Diagnosis (ICD Code) Assessment Notes Treatment Notes Treatment Clinical Notes Section Notes 08/08/2024 Colon cancer screening (ICD-10 - Z12.11) 08/08/2024 Personal history of colonic polyps (ICD-10 - Z86.0100) 04/08/2024 History of adenomatous polyp of colon (ICD-10 - Z86.010) Overall, Felipa appears quite well. She is not having any new or worrisome GI complaints at the present time. I did recommend a followup colonoscopy for further screening given her age, excellent clinical appearance, her history of tubular adenomas, and her Last colonoscopy being over 5 years ago. We did review the rationale for this regard to colon cancer prevention. Full consent is obtained for this, including risks of bleeding and perforation. We shall schedule the procedure for some time into the Fall so as to allow her to recuperate after her spinal stenosis surgery in May. Felipa is comfortable with this plan. Thank you again for allowing me to participate in Felipa's care. I shall continue to keep you advised of her progress. 04/08/2024 Encounter for other preprocedural examination (ICD-10 - Z01.818) Overall, Felipa appears quite well. She is not having any new or worrisome GI complaints at the present time. I did recommend a followup colonoscopy for further screening given her age, excellent clinical appearance, her history of tubular adenomas, and her Last colonoscopy being over 5 years ago. We did review the rationale for this regard to colon cancer prevention. Full consent is obtained for this, including risks of bleeding and perforation. We shall schedule the procedure for some time into the Fall so as to allow her to recuperate after her spinal stenosis surgery in May. Felipa is comfortable with this plan. Thank you again for allowing me to participate in Felipa's care. I shall continue to keep you advised of her progress. 08/08/2024 Diverticulosis of large intestine without perforation or abscess without bleeding (ICD-10 - K57.30) 04/08/2024 Colon cancer screening (ICD-10 - Z12.11) Overall, Felipa appears quite well. She is not having any new or worrisome GI complaints at the present time. I did recommend a followup colonoscopy for further screening given her age, excellent clinical appearance, her history of tubular adenomas, and her Last colonoscopy being over 5 years ago. We did review the rationale for this regard to colon cancer prevention. Full consent is obtained for this, including risks of bleeding and perforation. We shall schedule the procedure for some time into the Fall so as to allow her to recuperate after her spinal stenosis surgery in May. Felipa is comfortable with this plan. Thank you again for allowing me to participate in Felipa's care. I shall continue to keep you advised of her progress. 08/08/2024 Other hemorrhoids (ICD-10 - K64.8) Plan Of Treatment Future Test Test Name Order Date COLONOSCOPY 02/04/2019 COLONOSCOPY 04/08/2024 Insurance Providers Payer Name Payer Address Payer Phone Subscriber Number Group Number Insured Name Patient Relationship to Insured Coverage Start Date Coverage End Date [facility] [address] Attn Claims [place] [id number] FELIPA MORA Self - patient is the insured Medical (General) History Medical History History ICD Code Depression/Anxiety Denies NC,DM,CVA,Lung disease,renal dise ase Bulging disc in lower back Colonoscopies with Dr. Ruvalcaba in [place]-- had polyps removed --most recent colonoscopy approx 2013 Colonoscopy 03/2019-1 small t ubular adenoma removed--no inflammatory bowel disease noted GERD-EGD in 03/2019-small HH- no esophagitis nor Barney's esophagus, mild duodenitis, gastric bx neg. for Hpylori Spinal stenosis Surgical History Surgery Date(Month/Year) Cholecystectomy 2017 Surgery for Rectocele and En terocele 2016--she was having urinary incontinence prior to that which the surgery did help, but the surgery did not help the issue with her fecal incontinence Partial hysterectomy still has ovaries Tummy tuck Scheduled for spinal stenosis surgery Dr. Serrano for 05/2024
--- OUTSIDE RECORDS SUMMARY | 2025-02-06 13:58 | XMS_ITS | Encounter Summary ---
Author Organization [employer] Address [address] [facility] [address] [place] [address] Care Team Providers Care Varnish Blender Name Role Phone Name, Amaury DEVINE Primary Care Provider [phone] Reason for Visit * Reason Onset Date Comments Note/Letter 03/13/2023 Encounter Details Date Type Department Care Team ([facility] Contact Info) Description 03/13/2023 Telephone [facility] MEDICINE [address] [place], [place] [phone] Name, MD Amaury [address] [place], [place] [phone] Note/Letter Social History Tobacco Use Types Packs/Day Years Used Date Smoking Tobacco: Never Smokeless Tobacco: Never Alcohol Use Standard Drinks/Week Comments Never 0 (1 standard drink = 0.6 oz pur e alcohol) Depression Answer Date Recorded Patient Health Questionnaire-2 [...] suspected to have Coronavirus/COVID-19? No / Unsure 03/07/2023 10:37 AM EDT documented as of this encounter Miscellaneous Notes * Telephone Encounter - Riki Camposro - 03/13/2023 1:27 PM EDT Tc from pt requesting a status on a note that is needed for building that pt is currently living. Pt states that on last visit she asked for this note that indicates she needs to remove or put a washer. Please contact pt at [phone] documented in this encounter Plan of Treatment Not on file documented as of this encounter Visit Diagnoses Not on filedocumented in this encounter Care Teams Varnish Blender Relationship Specialty Start Date End Date Name, MD Amaury [address] [place] [address] PCP - General Family Medicine 04/18/21 01/29/24 documented as of this encounter
--- OUTSIDE RECORDS SUMMARY | 2025-02-06 13:58 | XMS_ITS | Encounter Summary ---
Author Organization [employer] Address [address] [facility] [address] [place] [address] Care Team Providers Care Seed Cleaner Operator Name Role Phone Name, Amaury DEVINE Primary Care Provider [phone] Reason for Visit * Reason Onset Date Comments Referral 03/13/2023 Encounter Details Date Type Department Care Team ([facility] st Contact Info) Description 03/13/2023 Telephone [facility] MEDICINE [address] [place], [place] [phone] Name, MD Amaury [address] [place] [address] Referral Social History Tobacco Use Types Packs/Day Years [...] * Telephone Encounter - Riki Castillo - 03/13/2023 1:26 PM EDT Tc from pt requesting status on referral pending for Vascular Surgery. Please contact pt at [phone] documented in this encounter Plan of Treatment Not on file documented as of this encounter Visit Diagnoses Not on filedocumented in this encounter Care Teams Seed Cleaner Operator Relationship Specialty Start Date End Date Name, MD Amaury [address] [place] [address] PCP - General Family Medicine 04/18/21 01/29/24 documented as of this encounter
--- OUTSIDE RECORDS SUMMARY | 2025-02-06 13:58 | XMS_ITS ---
Author Organization [facility] Address [address] [place] [address] Care Team Providers Care Missile And Missile Checkout Technician Name Role Phone TEE MADDEN Primary Care Provider Andre Olvera Unavailable [phone] Allergies Allergen (clinical drug ingredient) Drug/Non Drug Allergy documented on EMR Reaction Allergy Type Onset Date Status oxycodone Oxycodone HCl Unknown Drug Allergy Act paul morphine Morphine Sulfate Unknown Drug Allergy Active REASON FOR VISIT Patient presents today for a colon screening Medications Medication SIG (Take, Route, Fr equency, Duration) Notes Start Date End Date Status Multivitamin & Mineral Active Social History Tobacco Use: Social History Observation Description Date Details (start date - stop date) Never Smoker NA - NA Tobacco Use/Smoking Question Answer Notes Patient is a nonsmoker Alcohol Screen Question Answer Notes Did you have a drink containing alcohol in the p ast year? No Points 0 Interpretation Negative Section Notes: Nonsmoker; no alcohol No milk--uses [place] milk Problems Problem Type SNOMED Code ICD Code Onset Dates Problem Status W/U Status Risk Notes Problem Colon cancer screening (349289028) Colon cancer screening (Z12.11) Active confirmed Problem Pre-procedure evaluation check (166081525) Encounter for other preprocedural examination (Z01.818) Active confirmed Vital Signs Blood pressure systolic 00 mm Hg 04/08/20 24 Blood pressure diastolic 00 mm Hg 024 Height 63 in 04/08/2024 Weight 154 lbs 04/08/2024 BMI 27.28 kg/m2 04/08/2024 Encounters Encounter Location Date Provider Diagnosis [facility] [address] [place] [address] 04/08/2024 Andre Mayer History of adenomato us polyp of colon Z86.010 ; Encounter for other preprocedural examination Z01.818 and Colon cancer screening Z12.11 Assessments Encounter Date Diagnosis (ICD Code) Assessment Notes Treatment Notes Treatment Clinical Notes Section Notes 04/08/2024 History of adenomatous polyp of colon [...] keep you advised of her progress. 04/08/2024 Colon cancer screening (ICD-10 - Z12.11) [...] to keep you advised of her progress. Plan Of Treatment Future Test Test Name Order Date COLONOSCOPY 04/08/2024 Next Appt Details Follow Up: prn, Reason: Progress Notes * EUGENIA MORAADOB:1950 (74 yo F)Acc No.[id number]:04/08/2024 Progress Notes Patient:?FELIPA MORA Provider:?Andre Mayer MD :1950???Age:74 Y???Sex:Female D ate:04/08/2024 Address:[address] [place] [address] Pcp:TEE MADDEN Subjective: * Chief Complaints: * ???Patient presents today fo r a colon screening * HPI: ???incontinence:? I saw Felipa in the office today for evaluation of her personal history of tubular adenomas of the colon and need for colorectal cancer screening. ?I last saw Felipa in March 2019, which time she underwent a followup screening colonoscopy and upper endoscopy. The upper endoscopy revealed some mild gastritis but biopsies were negative for H. pylori. There was no evidence of any esophagitis, Barney's esophagus, nor ulcer disease. The colonoscopy revealed a small tubular adenoma that was removed. She reports that she presently feels very well. She enjoys a good appetite, without any significant heartburn or dysphagia. Her bowel movements have been regular and without any signs of bleeding. She denies any abdominal pain, jaundice, nor unintentional weight loss. She does describe having lost about 30 pounds on a purposeful diet earlier this year. She denies any known family history of colon cancer. ?She does advise me that she is scheduled for spinal stenosis surgery in May with Dr. Serrano. * ROS:?General/Constitutional:?Change in appetite?denies.?Chills?denies.?Fatigue?denies.?Ophthalmologic:?Comments?all negative.?ENT:?Comments?all negative.?Respiratory:?hemoptysis?denies.?Cough?denies.?Cardiovascular:?Chest pain?denies.?Orthopnea?denies.?Gastrointestinal:?Comments?See HPI for details.?Genitourinary:?Hematuria?denies.?Dysuria?denies.?Musculoskeletal:?Painful joints?denies.?Weakness?denies.?Skin:?Itching?denies.?Rash?denies.?Neurologic:?Headache?denies.?Seizures?denies.?Psychiatric:?Comments?all negative.? * Medical History:? * Surgical History:?Cholecyste ctomy 2017 Surgery for Rectocele and Enterocele 2017--she was having urinary incontinence prior to that which the surgery did help, but the surgery did not help the issue with her fecal incontinence Partial hysterectomy still has ovaries Tummy tuck Scheduled for spinal stenosis surgery with Dr. Serrano for 05/2024 * Hospitalization/Major Diagno stic Procedure:?No Hospitalization History. * Family History:?Father: dece ased.?Mother: .?Siblings: , diagnosed with Heart disease.? No known hx of colon cancer, IBD, celiac disease. * Social History:?Tobacco Use:?Tobacco Use/Smoking?Patient is a?nonsmoker.?Drugs/Alcohol:?Alcohol Screen?Did you have a drink containing alcohol in the past year??No,?Points?0,?Interpretation?Negative.?Miscellaneous:?Caffeine: 2-3 cups per day. Marital status: single. Occupation: Retired. ???Nonsmoker; no alcohol No milk--uses [place] milk. * Medications:?TakingMultivita min & Mineral Taking Multivitamin & Mineral DiscontinuedCholestyramine 4 GM/DOSE Powder 1/2 to 1 scoop Orally Once or Twice a day for diarrheaWellbutrin SR 150 MG Tablet Extended Release as directed Orally Once a dayVitamin B12 1000 MCG Tablet Extended Release 1 tablet Orally Once a dayOmeprazole 20 MG Capsule Delayed Release 1 capsule Orally Once a dayMedication List reviewed and reconciled with the patientDiscontinued Cholestyramine 4 GM/DOSE Powder 1/2 to 1 scoop Orally Once or Twice a day for diarrheaDiscontinued Wellbutrin SR 150 MG Tablet Extended Release as directed Orally Once a dayDiscontinued Vitamin B12 1000 MCG Tablet Extended Release 1 tablet Orally Once a dayDiscontinued Omeprazole 20 MG Capsule Delayed Release 1 capsule Orally Once a dayMedication List reviewed and reconciled with the patient * Allergies:?Oxycodone HClMorp antonieta Sulfateyes[Allergies Verified] Objective: * Vitals:?Wt: 154 lbs, Ht: 63 in, BMI:27.28 Index, BP: 00/00 mm Hg. * Examination: ???General Examination: ?GENERAL APPEARANCE:?pleasant, well nourished, well developed, in no acute distress.?EYES:?sclera non-icteric.?ORAL CAVITY:?mucosa moist.?NECK/THYROID:?no cervical lymphadenopathy, neck supple.?SKIN:?nonjaundiced, no spider angiomata.?HEART:?S1, S2 normal.?LUNGS:?clear to auscultation bilaterally.?ABDOMEN:?normal bowel sounds, no guarding or rigidity, no guarding or rigidity, no masses palpable, soft, nontender, nondistended.?EXTREMITIES:?no edema.?NEUROLOGIC:?alert and oriented.? Assessment: * Assessment: 1.?Encounter for other prepr ocedural examination - Z01.818 (Primary)?2.?History of adenomatous polyp of colon - Z86.010?3.?Colon cancer screening - Z12.11? Overall, Felipa appears quit e well. She is not having any new [...] to keep you advised of her progress. Plan: * Treatment: 2.?Colon cancer screening?Procedure: COLONOSCOPY (Ordered for 04/08/2024)* with MACsched for 08/08/24 at 8:40 ammiralax * Procedure Codes:?1036F TOBAC CO NON-[id number] BP SCR NOT PRFRM REC REASON NOS * Preventive Medicine:? ??Counseling:?Care goal follow-up plan:?Above Normal BMI Follow-up?Giving encouragement to exercise,?BMI management provided?Yes.? ??Urinary Incontinence:?Urinary Incontinence?Assessment:?Absent,?Plan of care documented:?No, reason not specified.? * Follow Up:?prn * * Sign off status: Completed true * Provider:?Andre Mayer MD Date:? 024 Generated for Christiano villa/Hemalatha/Russ on:?02/06/2025 01:58 PM EDT History and Physical Notes * HPI (History of Present Illness) Category Sub-Category Detail Notes Category Not es incontinence I saw Felipa in the office today for evaluation of her personal history of tubular adenomas of the colon and need for colorectal cancer screening. I last saw Felipa in March 2019, which time she underwent a followup screening colonoscopy and upper endoscopy. The upper endoscopy revealed some mild gastritis but biopsies were negative for H. pylori. There was no evidence of any esophagitis, Barney's esophagus, nor ulcer disease. The colonoscopy revealed a small tubular adenoma that was removed. She reports that she presently feels very well. She enjoys a good appetite, without any significant heartburn or dysphagia. Her bowel movements have been regular and without any signs of bleeding. She denies any abdominal pain, jaundice, nor unintentional weight loss. She does describe having lost about 30 pounds on a purposeful diet earlier this year. She denies any known family history of colon cancer. She does advise me that she is scheduled for spinal stenosis surgery in May with Dr. Serrano. Examination Category Sub-Category Detail Notes Category Not es General Examination GENERAL APPEARANCE: pleasant , well nourished, well developed, in no acute distress HEAD: EYES: sclera non-icteric EARS: NOSE: THROAT: NECK/THYROID: no cervical lymphade nopathy, neck supple HEART: S1, S2 normal CHEST: LUNGS: clear to auscultatio n bilaterally ABDOMEN: normal bowel sounds, no guarding or rigidity, no guarding or rigidity, no masses palpable, soft, nontender, nondistended NEUROLOGIC: alert and oriented SKIN: nonjaundiced, no spi abdi angiomata EXTREMITIES: no edema PERIPHERAL PULSES: BACK: BREASTS: MUSCULOSKELETAL: MALE GENITOURINARY: LYMPH NODES: RECTAL EXAM: FEMALE GENITOURINARY: ORAL CAVITY: mucosa moist
--- OUTSIDE RECORDS SUMMARY | 2025-02-06 13:58 | XMS_ITS | Continuity of Care Document ---
Author Organization [facility] Address [address] [place] [address] [address] [place] [address] Phone Care Team Providers Care Application Security Developer Name Role Phone Car ARCEOT ADONIS, Lane Chapman Unavailable Unavailable Advance Directives Directive Yes / No Effective Date File Name No Information Encounters Encounter Description Practice Location Reason(s) For Visit Diagnoses Date Provider Providers Copied on Encounter [facility], [address] [facility] [address], [place], [id number], [place] tel:[phone] [facility] No Information 3 Car DEVINE FACS MARIELOST ADONIS Chapman. [address] [address], [place], [address], [place]. tel:[phone] Referring Provider: Ghassan Larios MD ., [address] [facility], [place], [address]. tel:[phone] Family History Family Member Type Diagnosis Age At Onset No Information Payers Payer name Insurance type Covered alliance party ID Authoriza tion(s) No Information Social History Type Description Quantity Date Captured Comments Sex Female Smoking Status No Information Chief Complaint And Reason For Visit No Information Reason For Referral Reason For Referral No Information History Of Present Illness Encounter Date Complaint History Of Prese nt Illness No Information Functional Status Date Functional Assessmen t No Information Instructions Date Instruction Additional Infor mation No Information Assessments Type Assessment Date No Information Patient Care Teams Name Effective Dates (start - stop) Status Members No Information
--- OUTSIDE RECORDS SUMMARY | 2025-02-06 13:59 | XMS_ITS | Clinical Summary ---
Author Organization [employer] Address [address] [place] [address] Care Team Providers Care Assembler [employer] Name Role Phone Unavailable Primary Care Provider Unavailabl e Allergies Active Allergy Reactions Criticality Noted Date Comments Acetaminophen 09/22/2013 Cyclobenzaprine 10/30/2019 Feels tired and medicated Iodinated Contrast Media Nausea And Vomiting 12/16/2018 Lactose Diarrhea 03/07/2023 Morphine Hallucinations 09/22/2013 Other reaction(s): Other (See Comments) Hallucinations Oxycodone Nausea And Vomiting,Rash Low 09/22/2013 Medications busPIRone (Buspar) 5 MG tablet Take 1 tablet (5 mg) by mouth 2 times daily. 60 tablet 1 03/07/2023 Active Active Problems Problem Noted Date Diagnosed Date Herniation of rectum into vagina 03/07/2023 Fibromyalgia 03/07/2023 Anxiety 03/07/2023 Angiomyolipoma of right kidney 11/27/2022 Vascular insufficiency 10/18/2022 Migraine 10/18/2022 Joint pain 10/18/2022 Depressive disorder 10/18/2022 Chronic low back pain 10/18/2022 Chronic diarrhea 10/18/2022 History of cholecystectomy 10/18/2022 Other irritable bowel syndrome 10/18/2022 Immunizations Name Administration Dates Next Due Influenza High-dose Quadrivalent Preservative Fr ee 08/18/2021 Influenza injectable quadriv alent IIV4 with preservative 08/05/2020 Pneumococcal Conjugate PCV 13 08/13/2017 Pneumococcal Polysaccharide PPSV23 03/12/2015 Td (adult), unspecified 05/05/2005 Tdap 02/13/2011 Zoster, live 06/16/2015 Social History Tobacco Use Types Packs/Day Years Used Date Smoking Tobacco: Never Smokeless Tobacco: Never Tobacco Cessation:Counseling Given: Not Answered Alcohol Use Standard Drinks/Week Comments Never 0 (1 standard drink = 0.6 oz pur e alcohol) Housing Stability Answer Date Recorded What is your housing situation today? I have stas awan 08/11/[address] you li ve. Do you have problems with any of the following? None of the above 08/11/2023 Food Insecurity Answer Date Recorded Within the past 12 months, y ou worried that your food would run out before you got money to buy more: Never True 08/11/2023 Within the past 12 months,th e food you bought just didn't last and you didn't have enough money to get more: Never True 08/2023 Transportation Answer Date Recorded In the past 12 months, has l ack of transportation kept you from medical appts, meetings, work or from getting things needed for daily living? No 08/11/2023 Utilities Answer Date Recorded In the past 12 months, has t he electric, gas, oil or water company threatened to shut off services in your home? No 08/11/2023 Depression Answer Date Recorded Patient Health Questionnaire-2 Score 0 10/18/2022 Comments Unknown Sex and Gender Information Value Date Recorded Sex Assigned at Female 07/31/2022 10:24 AM EDT Legal Sex Female 10:24 AM EDT Gender Identity Female 07/31/2022 10:24 AM EDT Sexual Orientation Straight 07/31/2022 10 :24 AM EDT Last Filed Vital Signs Vital Sign Reading Time Taken Comments Blood Pressure 139/72 03/07/2023 10:43 AM EDT Pulse 68 03/07/2023 10:43 AM EDT Temperature 36 ??C (96.8 ??F) 03/07/2023 10:43 AM EDT Respiratory Rate 12 03/07/2023 10:43 AM EDT Oxygen Saturation 98% 03/07/2023 10:43 AM EDT Inhaled Oxygen Concentration - - Weight 78.7 kg (173 lb 9.6 oz) 03/07/2023 10:43 AM EDT Height 160 cm (5' 3 ) 03/07/2023 10:43 AM EDT Body Mass Index 30.75 03/07/2023 10:43 AM EDT Plan of Treatment Health Maintenance Due Date Last Done Comments Alcohol/Substance Use Screening 1962 Hepatitis C Screening 02/28/1966 Zoster Vaccines (2 of 3) 08/11/2015 06/16/2015 DTaP/Tdap/Td Vaccines (2 - T d or Tdap) 02/13/2021 02/13/2011, 05/05/2005 RSV Patients and Patients Aged 60 years or older (1 - 1-dose 75+ series) 02/28/2023 Depression Screening 10/18/2023 10/18/2022, 10/18/2022 SDOH Screening 10/18/2023 10/18/2022 Tobacco Screening 03/07/2024 03/07/2023 COVID-19 Vaccine (4 - 2023-2 5 season) 2024 07/01/2021, 01/06/2021, 12/16/2020 Influenza Vaccine (#1) 2024 , 08/05/2020 Pneumococcal Vaccine: 50+ Years Completed 08/13/2017, 03/12/2015 HIB Vaccines Aged Out No longer eligi ble based on patient's age to complete this topic HPV Vaccines Aged Out No longer eligi ble based on patient's age to complete this topic Hepatitis A Vaccines Aged Out No long er eligible based on patient's age to complete this topic Hepatitis B Vaccines Aged Out No long er eligible based on patient's age to complete this topic IPV Vaccines Aged Out No longer eligi ble based on patient's age to complete this topic Meningococcal Vaccine Aged Out No danielle colin eligible based on patient's age to complete this topic RSV under 20 months Aged Out No longe r eligible based on patient's age to complete this topic Rotavirus Vaccines Aged Out No longer eligible based on patient's age to complete this topic Insurance [employer] (HMO D-SNP) [place] [id number] * Guarantor: Felipa Mcmahon Account Type Relation to Patient Date of Phone Billing Address Dental Self
== END 2025-02-06 13:56 | disposition home or self-care (01) ==
LOC: HO.CT 13:55
PROVIDERS: PCP Family Medicine; Visit Provider Otolaryngology
DX: J33.0 Polyp of nasal cavity (principal)
CPT/HCPCS: 70486

== ENCOUNTER → 2025-02-06 14:07 | Outpatient (BNV) | payer OTHER, SELFPAY | PROVIDERS: PCP Family Medicine; Visit Provider Radiology Diagnostic Radiology | DX: J34.1 Cyst and mucocele of nose and nasal sinus (principal) | CPT/HCPCS: 70486 ==